=== PATIENT | male | born 1970 | race African-American/Black ===

== ENCOUNTER 2019-06-14 14:28 | Emergency (ER) | payer BC ==
[~2019-06-14] VITALS: Ht 180.3 cm; Wt 110.0 kg
[2019-06-14] MEDS ORDERED: ASPIRIN CHEWABLE 81 MG TABLET. PO ONE (15:15)
--- NOTE | 2019-06-14 15:25 | PHYS DOC ---
Past Medical History Past Medical History: Hypertension Past Surgical History: No Surgical History Smoking Status: Never Smoker Alcohol Use: Occasionally General Adult EDM: Chief Complaint: Palpitations HPI: HPI: Patient is a 49 year old male with history of hypertension who presents with complaint of heart racing. Patient complaining of intermittent episodes of palpitation since 2100 last night with right-sided chest tightness. Patient states the pain is 4/10 and gradually getting better since last night but episodes of hypotension is intermittently and last about 15 to 20 minutes without shortness of breath, dizziness, fever and chills, cough and congestion, history of the same problem. Review of Systems: Review of Systems: Constitutional: Denies fever or chills. [] Eyes: Denies change in visual acuity. [] HENT: Denies nasal congestion or sore throat. [] Respiratory: Denies cough or shortness of breath. [] Cardiovascular: Denies chest pain or edema. [] GI: Denies abdominal pain, nausea, vomiting, bloody stools or diarrhea. [] : Denies dysuria. [] Musculoskeletal: Denies back pain or joint pain. [] Integument: Denies rash. [] Neurologic: Denies headache, focal weakness or sensory changes. [] Endocrine: Denies polyuria or polydipsia. [] Lymphatic: Denies swollen glands. [] Psychiatric: Denies depression or anxiety. [] Heart Score: HEART Score for Chest Pain: HEART Score for Chest Pain Response (Comments) Value History Moderately Suspicious 1 ECG Normal 0 Age >45 - < 65 1 Risk Factors 1 or 2 Risk Factors 1 Troponin < Normal Limit 0 Total 3 Risk Factors: Risk Factors: DM, Current or recent (<one month) smoker, HTN, HLP, family history of CAD, obesity. Risk Scores: Score 0 - 3: 2.5% MACE over next 6 weeks - Discharge Home Score 4 - 6: 20.3% MACE over next 6 weeks - Admit for Clinical Observation Score 7 - 10: 72.7% MACE over next 6 weeks - Early Invasive Strategies Allergies: Allergies: Allergies Coded Allergies Type Severity Reaction Last Updated Verified No Known Drug Allergies 06/14/19 No Physical Exam: PE: Constitutional: Well developed, well nourished, no acute distress, non-toxic appearance. [] HENT: Normocephalic, atraumatic Eyes: PERRLA, EOMI, conjunctiva normal, no discharge. [] Neck: Normal range of motion, no tenderness, supple, no stridor. [] Cardiovascular:Heart rate regular rhythm, no murmur [] Lungs & Thorax: Bilateral breath sounds clear to auscultation, no chest wall tenderness. [] Abdomen: Bowel sounds normal, soft, no tenderness, no masses, no pulsatile masses. [] Skin: Warm, dry, no erythema, no rash. [] Back: No tenderness, no CVA tenderness. [] Extremities: No tenderness, no cyanosis, no clubbing, ROM intact, no edema. [] Neurologic: Alert and oriented X 3, normal motor function, normal sensory function, no focal deficits noted. [] Psychologic: Affect normal, judgement normal, mood normal. [] Current Patient Data: Vital Signs: Vital Signs Date Time Temp Pulse Resp B/P (MAP) Pulse Ox O2 Delivery O2 Flow Rate FiO2 06/14/19 14:40 98.5 81 16 167/72 (103) 99 Room Air 98.5 EKG: EKG: EKG interpreted by me. EKG at 1438 showed normal sinus rhythm at rate of 85, normal IN and QT intervals, no acute ST and T wave elevation. Radiology/Procedures: Radiology/Procedures: [facility] [address] [place] [address] IMAGING REPORT Signed PATIENT: NEYDA SETH ACCOUNT: [id number] : 1970 LOCATION: ER AGE: 49 SEX: M EXAM STATUS: REG ER ORD. PHYSICIAN: NICOLE CORONADO MD REASON: Chest pain and palpitation PROCEDURE: PORTABLE CHEST 1V One view chest HISTORY: Chest pain and palpitations COMPARISON: None available FINDINGS: The heart is mildly prominent in size may partially reflect portable technique. Pulmonary vasculature is mildly prominent. The lungs are slightly underexpanded. There is a focal density in the right lower lobe. No effusion or pneumothorax. IMPRESSION: Mild interstitial prominence could reflect nonspecific interstitial infiltrates, hypervolemia or edema. Focal density in the right lower lobe Electronically signed by: Jessica Schroeder MD (06/14/2019 3:42 PM) [id number] DICTATED and SIGNED BY: JESSICA SCHROEDER MD DATE: 06/14/19 1542 Course & Med Decision Making: Course & Med Decision Making Pertinent Labs and Imaging studies reviewed. (See chart for details) Evaluation of patient in ER showed 49-year-old male patient with heart score of 3 and intermittent episodes of palpitation and chest tightness in the right side of chest since last night. Patient had increase of physical activity recently. Patient had elevation of CK with unremarkable d-dimer, troponin, electrolytes and liver and kidney function. Chest x-ray was questionable for infiltrate or edema but patient did not have cough, fever, leukocytosis or leukopenia, concern for COVID 19. Patient was advised avoid of heavy exercise and increase fluid intake. I've spoken with the patient and/or caregivers. I've explained the patient's condition, diagnosis and treatment plan based on information available to me at this time. I've answered the patient's and/or caregivers questions and addressed any concerns. The patient and/or caregivers have a good understanding the patient's diagnosis, condition and treatment plan as can be expected at this point. Vital signs have been stabilized. The patient's condition is stable for discharge from the emergency department. The patient will pursue further outpatient evaluation with her primary care provider or other designated consulting physician as outlined in the discharge instructions. Patient and/or caregivers are agreeable to this plan of care and follow-up instructions have been explained in detail. The patient and/or caregivers have received these instructions in written format and expressed understanding of these discharge instructions. The patient and her caregivers are aware that if any significant change in condition or worsening of symptoms should prompt him to immediately return to this of the closest emergency departm ent. If an emergent department is not readily available I would encourage him to call 911. Desean Disclaimer: Desean Disclaimer: This electronic medical record was generated, in whole or in part, using a voice recognition dictation system. Departure Departure Impression: Primary Impression: Exertional rhabdomyolysis Disposition: HOME, SELF-CARE (At 1639) Condition: STABLE Referrals: NIRAV VELASCO MD (PCP) Patient Instructions: Rhabdomyolysis Additional Instructions: Drink plenty of liquids Follow-up with your primary care physician in 3-5 days Return to ER if not getting better Avoid of heavy exercise for a few days May take [id number] Tylenol as needed for pain Thank you for visiting [facility]. We appreciate you trusting us with your care. If any additional problems come up don't hesitate to return to visit us. Please follow up with your primary care provider so they can plan additional care if needed and know about the problem that you had. If symptoms worsen come back to the Emergency Department. Any concerning symptoms that start such as chest pain, shortness of air, weakness or numbness on one side of the body, running high fevers or any other concerning symptoms return to the ER. NICOLE CORONADO MD Jun 14, 2019 15:25
[2019-06-14 15:37] LABS: BASO % 1 % (0-3); EOS # 0.1 x10^3/uL (0.0-0.7); EOS % 2 % (0-3); HEMOGLOBIN 13.7 g/dL (13.0-17.5); LYMPH # 1.3 x10^3/uL (1.0-4.8); LYMPH % 24 % (24-48); MEAN CORPUSCULAR HEMOGLOBIN 24 pg (25-35); MEAN CORPUSCULAR HGB CONC 33 g/dL (31-37); MEAN CORPUSCULAR VOLUME 74 fL (79-100); MONO # 0.5 x10^3/uL (0.0-1.1); MONO % 9 % (0-9); NEUT # 3.6 x10^3/uL (1.8-7.7); NEUT % 65 % (31-73); PLATELET COUNT 262 x10^3/uL (140-400); RED BLOOD COUNT 5.65 x10^6/uL (4.30-5.70); RED CELL DISTRIBUTION WIDTH 14.5 % (11.5-14.5); WHITE BLOOD COUNT 5.5 x10^3/uL (4.0-11.0)
--- NOTE | 2019-06-14 15:45 | RAD ---
One view chest HISTORY: Chest pain and palpitations COMPARISON: None available FINDINGS: The heart is mildly prominent in size may partially reflect portable technique. Pulmonary vasculature is mildly prominent. The lungs are slightly underexpanded. There is a focal density in the right lower lobe. No effusion or pneumothorax. IMPRESSION: Mild interstitial prominence could reflect nonspecific interstitial infiltrates, hypervolemia or edema. Focal density in the right lower lobe Electronically signed by: Travis Read MD (06/14/2019 3:42 PM) [id number]
[2019-06-14 15:58] LABS: PROTHROMBIN TIME PATIENT 12.9 SEC (11.7-14.0)
--- NOTE | 2019-06-14 16:04 | EKG ---
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 Electronically Signed On 06-15-2019 9:22:59 CDT by Davon Mccarty
[2019-06-14 16:11] LABS: CALCIUM 9.1 mg/dL (8.5-10.1); CREATININE 1.3 mg/dL (0.7-1.3); GFR 70.7; POTASSIUM 3.7 mmol/L (3.5-5.1)
[2019-06-14 16:15] LABS: ALBUMIN 4.2 g/dL (3.4-5.0); ALBUMIN/GLOBULIN RATIO 1.1 (1.0-1.7); MAGNESIUM 1.9 mg/dL (1.8-2.4); TOTAL BILIRUBIN 0.6 mg/dL (0.2-1.0); TOTAL PROTEIN 7.9 g/dL (6.4-8.2)
[2019-06-14 16:21] LABS: D-DIMER < 0.27 ug/mlFEU (0.00-0.50)
[2019-06-14 16:40] VITALS: BP 169/93
== END 2019-06-14 18:17 | disposition home or self-care (01) ==
LOC: ER 14:28
DX: M62.82 Rhabdomyolysis (principal); R07.89 Other chest pain; R00.2 Palpitations; I10 Essential (primary) hypertension
CPT/HCPCS: 36415; 71045; 80053; 82550; 83690; 83735; 83880; 84443; 84484; 85025; 85379; 85610; 93005; 99285

== ENCOUNTER 2019-07-24 06:49 | Inpatient (IN) | payer BC ==
[~2019-07-24] VITALS: Ht 180.3 cm; Wt 105.4 kg
[2019-07-24] MEDS ORDERED: ASPIRIN CHEWABLE 81 MG TABLET. PO ONE (07:45)
[2019-07-24] MEDS ORDERED: NITROGLYCERIN SUBLINGUAL 0.4 MG BOTTLE OF 25. SL PRN (07:45)
--- NOTE | 2019-07-24 08:24 | RAD ---
INDICATION: Chest pain COMPARISON: June 14, 2019 FINDINGS: Single view of chest obtained. Cardiac silhouette is mildly prominent. Hypoexpanded exam with mild interstitial opacities. Nodular opacity right lower lung measuring up to 15 mm. IMPRESSION: * Hypoexpanded exam with mild interstitial opacities bilaterally. Could be secondary to interstitial infiltrate or mild edema. * Nodular opacity at the right lower lung. Some possible causes would include nodular atelectasis, infectious or inflammatory causes as well as lung neoplasm. Further workup option includes CT of the chest. Electronically signed by: Avery Jose MD (07/24/2019 8:21 AM) [id number]
[2019-07-24 08:32] LABS: BASO % 1 % (0-3); EOS # 0.1 x10^3/uL (0.0-0.7); EOS % 2 % (0-3); HEMATOCRIT 41.3 % (39.0-53.0); HEMOGLOBIN 13.3 g/dL (13.0-17.5); LYMPH # 1.7 x10^3/uL (1.0-4.8); LYMPH % 28 % (24-48); MEAN CORPUSCULAR HEMOGLOBIN 24 pg (25-35); MEAN CORPUSCULAR HGB CONC 32 g/dL (31-37); MEAN CORPUSCULAR VOLUME 75 fL (79-100); MONO # 0.7 x10^3/uL (0.0-1.1); MONO % 10 % (0-9); NEUT # 3.7 x10^3/uL (1.8-7.7); NEUT % 59 % (31-73); PLATELET COUNT 254 x10^3/uL (140-400); RED BLOOD COUNT 5.53 x10^6/uL (4.30-5.70); RED CELL DISTRIBUTION WIDTH 14.3 % (11.5-14.5); WHITE BLOOD COUNT 6.3 x10^3/uL (4.0-11.0)
[2019-07-24 08:42] LABS: CALCIUM 8.7 mg/dL (8.5-10.1); CREATININE 1.3 mg/dL (0.7-1.3); GFR 70.7; POTASSIUM 3.2 mmol/L (3.5-5.1)
[2019-07-24 08:48] LABS: ALBUMIN/GLOBULIN RATIO 1.2 (1.0-1.7); TOTAL BILIRUBIN 0.3 mg/dL (0.2-1.0); TOTAL PROTEIN 7.3 g/dL (6.4-8.2)
--- NOTE | 2019-07-24 10:32 | PHYS DOC ---
Past Medical History Past Medical History: Hypertension, Other Additional Past Medical Histor: blind right eye Past Surgical History: No Surgical History Additional Past Surgical Histo: right eye removal after work accident Smoking Status: Never Smoker Alcohol Use: Occasionally Adult General Chief Complaint Chief Complaint: Congestion HPI HPI Patient is a 49 year old -[place] male with history of hypertension, dyslipidemia and prediabetes who presents with precordial chest pain radiating to right lower chest. Pain lasted for 15 to 20 minutes and is episodic and is associated with dyspnea. Symptoms have been occurring sporadically over the past 4 weeks. Denies nausea, vomiting, abdominal pain, sweats. No leg pain or swelling. No other acute symptoms or planes. No medications or therapies taken prior to ED arrival. Patient is non-smoker. No family history of CAD. Although, patient's mother of cerebrovascular disease at age 49. [] Review of Systems Review of Systems View of symptoms as per HPI. All other review of symptoms are negative. All other systems were reviewed and found to be within normal limits, except as documented in this note. Current Medications Current Medications Current Medications Medications (Trade) Dose Ordered Sig/Dwayne Start Time Stop Time Status Last Admin Dose Admin Aspirin (Aspirin Chewable) 324 mg 1X ONCE 07/24/19 07:45 07/24/19 07:46 DC 07/24/19 08:30 324 MG Nitroglycerin (Nitrostat) 0.4 mg PRN Q5MIN PRN 07/24/19 07:45 07/24/19 08:34 0.4 MG Allergies Allergies Allergies Coded Allergies Type Severity Reaction Last Updated Verified No Known Drug Allergies 06/14/19 No Physical Exam Physical Exam Constitutional: Well developed, well nourished, no acute distress, non-toxic appearance. [] HENT: Normocephalic, atraumatic, bilateral external ears normal, oropharynx moist, no oral exudates, nose normal. [] Eyes: PERRLA, EOMI, conjunctiva normal, no discharge. [] Neck: Normal range of motion, no tenderness, supple, no stridor. [] Cardiovascular:Heart rate regular rhythm, no murmur [] Lungs & Thorax: Bilateral breath sounds clear to auscultation [] Abdomen: Bowel sounds normal, soft, no tenderness. [] Skin: Warm, dry, no erythema, no rash. [] Back: No tenderness, no CVA tenderness. [] Extremities: No tenderness, no cyanosis, no clubbing, ROM intact, no edema. [] Neurologic: Alert and oriented X 3, normal motor function, normal sensory funct ion, no focal deficits noted. [] Psychologic: Affect normal, judgement normal, mood normal. [] Current Patient Data Vital Signs Vital Signs Date Time Temp Pulse Resp B/P (MAP) Pulse Ox O2 Delivery O2 Flow Rate FiO2 07/24/19 10:07 53 20 171/88 (115) 100 07/24/19 09:16 Room Air 07/24/19 07:15 98.1 98.1 Lab Values Laboratory Tests Test 07/24/19 08:10 White Blood Count 6.3 x10^3/uL (4.0-11.0) Red Blood Count 5.53 x10^6/uL (4.30-5.70) Hemoglobin 13.3 g/dL (13.0-17.5) Hematocrit 41.3 % (39.0-53.0) Mean Corpuscular Volume 75 fL (79-100) L Mean Corpuscular Hemoglobin 24 pg (25-35) L Mean Corpuscular Hemoglobin Concent 32 g/dL (31-37) Red Cell Distribution Width 14.3 % (11.5-14.5) Platelet Count 254 x10^3/uL (140-400) Neutrophils (%) (Auto) 59 % (31-73) Lymphocytes (%) (Auto) 28 % (24-48) Monocytes (%) (Auto) 10 % (0-9) H Eosinophils (%) (Auto) 2 % (0-3) Basophils (%) (Auto) 1 % (0-3) Neutrophils # (Auto) 3.7 x10^3/uL (1.8-7.7) Lymphocytes # (Auto) 1.7 x10^3/uL (1.0-4.8) Monocytes # (Auto) 0.7 x10^3/uL (0.0-1.1) Eosinophils # (Auto) 0.1 x10^3/uL (0.0-0.7) Basophils # (Auto) 0.0 x10^3/uL (0.0-0.2) D-Dimer (Yolanda) < 0.27 ug/mlFEU Sodium Level 137 mmol/L (136-145) Potassium Level 3.2 mmol/L (3.5-5.1) L Chloride Level 101 mmol/L (98-107) Carbon Dioxide Level 32 mmol/L (21-32) Anion Gap 4 (6-14) L Blood Urea Nitrogen 16 mg/dL (8-26) Creatinine 1.3 mg/dL (0.7-1.3) Estimated GFR (Cockcroft-Gault) 70.7 BUN/Creatinine Ratio 12 (6-20) Glucose Level 101 mg/dL (70-99) H Calcium Level 8.7 mg/dL (8.5-10.1) Total Bilirubin 0.3 mg/dL (0.2-1.0) Aspartate Amino Transferase (AST) 23 U/L (15-37) Alanine Aminotransferase (ALT) 37 U/L (16-63) Alkaline Phosphatase 107 U/L (46-116) Troponin I Quantitative < 0.017 ng/mL (0.000-0.055) NX-Nxw-V-Type Natriuretic Peptide 69 pg/mL (0-124) Total Protein 7.3 g/dL (6.4-8.2) Albumin 4.0 g/dL (3.4-5.0) Albumin/Globulin Ratio 1.2 (1.0-1.7) Laboratory Tests 07/24/19 08:10 Laboratory Tests 07/24/19 08:10 EKG EKG [EKG: reviewed] Radiology/Procedures Radiology/Procedures [Chest x-ray: No acute disease] Course & Med Decision Making Course & Med Decision Making Pertinent Labs and Imaging studies reviewed. (See chart for details) [Atypical chest pain relieved with nitroglycerin given the patient with multiple cardiac risk factors. EKG negative. Symptoms fully resolved. Dr. Valentine in the ED for hospital admission.] Dragon Disclaimer Dragon Disclaimer This electronic medical record was generated, in whole or in part, using a voice recognition dictation system. Departure Departure Impression: Primary Impression: Chest pain Disposition: ADMITTED INPATIENT Condition: STABLE Referrals: NIRAV VELASCO MD (PCP) MICHAEL VENTURA DO July 24, 2019 10:32
--- NOTE | 2019-07-24 10:55 | PDOC1 ---
History and Physical Date of Admission Date of Admission DATE: 07/24/19 TIME: 10:50 Identification/Chief Complaint Chief Complaint seen in er with chest pressure, mixed symptoms and abnormal cxr 49 year old -Wallisian male with history of hypertension, dyslipidemia and prediabetes who presents with precordial chest pain radiating to right lower chest. Pain lasted for 15 to 20 minutes and is episodic and is associated with dyspnea. Symptoms have been occurring sporadically over the past 4 weeks. Denies nausea, vomiting, abdominal pain, sweats. No leg pain or swelling. No medications or therapies taken prior to ED arrival. Patient is non-smoker. No family history of CAD. patient's mother of cerebrovascular disease at age 49. 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 [facility] 2018 Past Surgical History: No Surgical History Additional Past Surgical Histo: right eye removal after work accident Smoking Status: Never Smoker Alcohol Use: Occasionally FHX HTN Cardiovascular: HTN ENT: Other (right eye loss 2016) Endocrine: No pertinent hx Dermatology: No pertinent hx Family History Family History: Hypertension Social History Smoke: No ALCOHOL: occassional Drugs: None Current Problem List Problem List Problems Medical Problems: (1) Chest pain Status: Acute Current Medications Current Medications Current Medications Aspirin (Aspirin Chewable) 324 mg 1X ONCE PO Last administered on 07/24/19at 08:30; Start 07/24/19 at 07:45; Stop 07/24/19 at 07:46; Status DC Nitroglycerin (Nitrostat) 0.4 mg PRN Q5MIN PRN SL CHEST PAIN Last administered on 07/24/19at 08:34; Start 07/24/19 at 07:45 Allergies Allergies: Coded Allergies: No Known Drug Allergies (Unverified , 06/14/19) ROS Review of System Review of Systems Review of Systems as per HPI. All other review of symptoms are negative. 14 pt systems were reviewed and found to be within normal limits, except as documented General: No: Chills, Night Sweats, Fatigue, Malaise, Appetite, Other Eyes: Yes Loss of vision HEENT: No: Heacaches, Visual Changes, Hearing change, Nasal congestion, Nasal discharge, Oral lesions, Sinus pain, Sore Throat, Epistaxis, Sneezing, Snoring, Tinnitus, Vertigo, Vocal changes, Other ALLERGY AND IMMUNOLOGY: No: Hives, Insect Bite Sensitivity, Itchy/Watery Eyes, Nasal Congestion, Post Nasal Drip, Seasonal Allergies, Other Hematological and Lymphatic: No: Bleeding Problems, Blood Clots, Blood Transfusions, Brusing, Night Sweats, Pallor, Swollen Lymph Nodes, Other Respiratory: No: Cough, Hemoptysis, Orthopnea, Pleuritic Pain, Shortness of breath, SOB with excertion, Sputum Changes, Stridor, Tachypnea, Wheezing, Other Cardiovascular: yes Chest Pain; No Palpitations, No Orthopnea, No Paroxysmal Noc. Dyspnea, No Edema, No Lt Headedness, No Other Gastrointestinal: No Nausea, No Vomiting, No Abdominal Pain, No Diarrhea, No Constipation, No Melena, No Hematochezia, No Other Genitourinary: No Dysuria, No Frequency, No Incontinence, No Hematuria, No Retention, No Discharge, No Urgency, No Pain, No Flank Pain, No Other, No , No , No , No , No , No , No Musculoskeletal: No Gait Disturbance, No Joint Pain, No Joint Stiffness, No Joint Swelling, No Muscle Pain, No Muscular Weakness, No Pain In:, No Swelling In:, No Other Neurological: No Behavorial Changes, No Bowel/Bladder ControlChng, No Confusion, No Dizziness, No Gait Disturbance, No Headaches, No Impaired Coord/balance, No Memory Loss, No Numbness/Tingling, No Seizures, No Speech P roblems, No Tremors, No Visual Changes, No Weakness, No Other Skin: No Dry Skin, No Eczema, No Hair Changes, No Lumps, No Mole Changes, No Mottling, No Nail Changes, No Pruritus, No Rash, No Skin Lesion Changes, No Other, No Acne Physical Exam Physical Exam Physical Exam Physical Exam Constitutional: Well developed, well nourished, no acute distress, non-toxic appearance. [] HENT: Normocephalic, atraumatic, bilateral external ears normal, oropharynx moist, no oral exudates, nose normal. right eye prosthetic[] Eyes: PERRLA, EOMI, conjunctiva normal, no discharge. [] Neck: Normal range of motion, no tenderness, supple, no stridor. [] Cardiovascular:Heart rate regular rhythm, no murmur [] Lungs & Thorax: Bilateral breath sounds clear to auscultation [] Abdomen: Bowel sounds normal, soft, no tenderness. [] Skin: Warm, dry, no erythema, no rash. [] Back: No tenderness, no CVA tenderness. [] Extremities: No tenderness, no cyanosis, no clubbing, ROM intact, no edema. [] Neurologic: Alert and oriented X 3, normal motor function, normal sensory function, no focal deficits noted. [] Psychologic: Affect normal, judgment normal, mood normal. [] General: Alert, Oriented X3, Cooperative, No acute distress HEENT: Mucous membr. moist/pink Lungs: Clear to auscultation, Normal air movement Heart: S1S2, RRR, no thrills, no gallops, no murmurs Abdomen: Normal bowel sounds, Soft Rectal Exam: not examined Extremities: No cyanosis, No edema Neuro: Normal speech, Cranial nerves 3-12 NL Psych/Mental Status: Mental status NL, Mood NL Vitals Vitals Vital Signs Date Time Temp Pulse Resp B/P (MAP) Pulse Ox O2 Delivery O2 Flow Rate FiO2 07/24/19 10:48 63 20 154/84 (107) 98 Room Air 07/24/19 07:15 98.1 98.1 Labs Labs Laboratory Tests Test 07/24/19 08:10 White Blood Count 6.3 x10^3/uL (4.0-11.0) Red Blood Count 5.53 x10^6/uL (4.30-5.70) Hemoglobin 13.3 g/dL (13.0-17.5) Hematocrit 41.3 % (39.0-53.0) Mean Corpuscular Volume 75 fL (79-100) Mean Corpuscular Hemoglobin 24 pg (25-35) Mean Corpuscular Hemoglobin Concent 32 g/dL (31-37) Red Cell Distribution Width 14.3 % (11.5-14.5) Platelet Count 254 x10^3/uL (140-400) Neutrophils (%) (Auto) 59 % (31-73) Lymphocytes (%) (Auto) 28 % (24-48) Monocytes (%) (Auto) 10 % (0-9) Eosinophils (%) (Auto) 2 % (0-3) Basophils (%) (Auto) 1 % (0-3) Neutrophils # (Auto) 3.7 x10^3/uL (1.8-7.7) Lymphocytes # (Auto) 1.7 x10^3/uL (1.0-4.8) Monocytes # (Auto) 0.7 x10^3/uL (0.0-1.1) Eosinophils # (Auto) 0.1 x10^3/uL (0.0-0.7) Basophils # (Auto) 0.0 x10^3/uL (0.0-0.2) D-Dimer (Yolanda) < 0.27 ug/mlFEU Sodium Level 137 mmol/L (136-145) Potassium Level 3.2 mmol/L (3.5-5.1) Chloride Level 101 mmol/L (98-107) Carbon Dioxide Level 32 mmol/L (21-32) Anion Gap 4 (6-14) Blood Urea Nitrogen 16 mg/dL (8-26) Creatinine 1.3 mg/dL (0.7-1.3) Estimated GFR (Cockcroft-Gault) 70.7 BUN/Creatinine Ratio 12 (6-20) Glucose Level 101 mg/dL (70-99) Calcium Level 8.7 mg/dL (8.5-10.1) Total Bilirubin 0.3 mg/dL (0.2-1.0) Aspartate Amino Transf (AST/SGOT) 23 U/L (15-37) Alanine Aminotransferase (ALT/SGPT) 37 U/L (16-63) Alkaline Phosphatase 107 U/L (46-116) Troponin I Quantitative < 0.017 ng/mL (0.000-0.055) GO-Khu-U-Type Natriuretic Peptide 69 pg/mL (0-124) Total Protein 7.3 g/dL (6.4-8.2) Albumin 4.0 g/dL (3.4-5.0) Albumin/Globulin Ratio 1.2 (1.0-1.7) Laboratory Tests Test 07/24/19 08:10 White Blood Count 6.3 x10^3/uL (4.0-11.0) Red Blood Count 5.53 x10^6/uL (4.30-5.70) Hemoglobin 13.3 g/dL (13.0-17.5) Hematocrit 41.3 % (39.0-53.0) Mean Corpuscular Volume 75 fL (79-100) Mean Corpuscular Hemoglobin 24 pg (25-35) Mean Corpuscular Hemoglobin Concent 32 g/dL (31-37) Red Cell Distribution Width 14.3 % (11.5-14.5) Platelet Count 254 x10^3/uL (140-400) Neutrophils (%) (Auto) 59 % (31-73) Lymphocytes (%) (Auto) 28 % (24-48) Monocytes (%) (Auto) 10 % (0-9) Eosinophils (%) (Auto) 2 % (0-3) Basophils (%) (Auto) 1 % (0-3) Neutrophils # (Auto) 3.7 x10^3/uL (1.8-7.7) Lymphocytes # (Auto) 1.7 x10^3/uL (1.0-4.8) Monocytes # (Auto) 0.7 x10^3/uL (0.0-1.1) Eosinophils # (Auto) 0.1 x10^3/uL (0.0-0.7) Basophils # (Auto) 0.0 x10^3/uL (0.0-0.2) D-Dimer (Yolanda) < 0.27 ug/mlFEU Sodium Level 137 mmol/L (136-145) Potassium Level 3.2 mmol/L (3.5-5.1) Chloride Level 101 mmol/L (98-107) Carbon Dioxide Level 32 mmol/L (21-32) Anion Gap 4 (6-14) Blood Urea Nitrogen 16 mg/dL (8-26) Creatinine 1.3 mg/dL (0.7-1.3) Estimated GFR (Cockcroft-Gault) 70.7 BUN/Creatinine Ratio 12 (6-20) Glucose Level 101 mg/dL (70-99) Calcium Level 8.7 mg/dL (8.5-10.1) Total Bilirubin 0.3 mg/dL (0.2-1.0) Aspartate Amino Transf (AST/SGOT) 23 U/L (15-37) Alanine Aminotransferase (ALT/SGPT) 37 U/L (16-63) Alkaline Phosphatase 107 U/L (46-116) Troponin I Quantitative < 0.017 ng/mL (0.000-0.055) ZL-Cvd-I-Type Natriuretic Peptide 69 pg/mL (0-124) Total Protein 7.3 g/dL (6.4-8.2) Albumin 4.0 g/dL (3.4-5.0) Albumin/Globulin Ratio 1.2 (1.0-1.7) Images Images Single view of chest obtained. Cardiac silhouette is mildly prominent. Hypoexpanded exam with mild interstitial opacities. Nodular opacity right lower lung measuring up to 15 mm. IMPRESSION: * Hypoexpanded exam with mild interstitial opacities bilaterally. Could be secondary to interstitial infiltrate or mild edema. * Nodular opacity at the right lower lung. Some possible causes would include nodular atelectasis, infectious or inflammatory causes as well as lung neoplasm. Further workup option includes CT of the chest. Electronically signed by: Leidy Jose MD (07/24/2019 8:21 AM) [id number] DICTATED and SIGNED BY: LEIDY JOSE MD DATE: 07/24/1921 VTE Prophylaxis Ordered VTE Prophylaxis Devices: Yes VTE Pharmacological Prophylaxi: Yes Assessment/Plan Assessment/Plan IMPRESSION 1 atypical chest pain 2. Hypoexpanded exam with mild interstitial opacities bilaterally. Could be secondary to interstitial infiltrate or mild edema.Nodular opacity at the right lower lung. Some possible causes would include nodular atelectasis, infectious or inflammatory causes as well as lung neoplasm. consider CT of the chest. 3. hypertension 4. hypokalemia , on replacement 5. possible GERD 6/. Possible obstructive sleep apnea plan admit consult cardiology consult pulm medicine serial troponin i covid-[address] CHEST exclude mass dvt prophylaxis lipid panel protonix consider out pt sleep study D/W ER ELLI RIVERA MD July 24, 2019 10:55
[2019-07-24] MEDS ORDERED: POTASSIUM CHLORIDE 20 MEQ TABLET.ER. PO ONE (11:00)
[2019-07-24] MEDS ORDERED: ONDANSETRON PF 4 MG/2 ML VIAL. IV PRN (11:15)
[2019-07-24] MEDS ORDERED: LORazepam 0.5 MG TABLET PO PRN (11:15)
[2019-07-24] MEDS ORDERED: MAG HYDROX/ALUMINUM HYD/SIMETH 30 ML ORAL.SUSP PO PRN (11:15)
[2019-07-24] MEDS ORDERED: hydrALAZINE 20 MG/ML VIAL. IVP PRN (11:15)
[2019-07-24] MEDS ORDERED: guaiFENesin ORAL 200 MG/10 ML LIQUID. PO PRN (11:15)
[2019-07-24] MEDS ORDERED: DOCUSATE SODIUM 100 MG CAPSULE. PO PRN (11:15)
[2019-07-24] MEDS ORDERED: ALBUTEROL SULFATE 2.5 MG/3 ML NEBU. NEB PRN (11:15)
[2019-07-24] MEDS ORDERED: SODIUM PHOSPHATES 19/7GM 133 ML ENEMA. PR PRN (11:15)
[2019-07-24] MEDS ORDERED: 0.9 % SODIUM CHLORIDE 10 ML DISP.SYRIN. IV PRN (11:15)
[2019-07-24] MEDS ORDERED: ACETAMINOPHEN 325 MG TABLET. PO PRN (11:15)
--- NOTE | 2019-07-24 11:24 | PDOC2 ---
CARDIAC CONSULT DATE OF CONSULT Date of Consult DATE: 07/24/19 TIME: 11:20 REASON FOR CONSULT Reason for Consult: Chest pain REFERRING PHYSICIAN Referring Physician: Dr. Valentine SOURCE Source: Chart review, Patient HISTORY OF PRESENT ILLNESS HISTORY OF PRESENT ILLNESS This is a 49 yo male who presented secondary to chest pain. PAST MEDICAL HISTORY Cardiovascular: HTN, Hyperlipidemia CURRENT MEDICATIONS CURRENT MEDICATIONS Current Medications Medications (Trade) Dose Ordered Sig/Dwayne Route PRN Reason Start Time Stop Time Status Last Admin Dose Admin Aspirin (Aspirin Chewable) 324 mg 1X ONCE PO 07/24/19 07:45 07/24/19 07:46 DC 07/24/19 08:30 Nitroglycerin (Nitrostat) 0.4 mg PRN Q5MIN PRN SL CHEST PAIN 07/24/19 07:45 07/24/19 08:34 Potassium Chloride (Klor-Con) 40 meq 1X ONCE PO 07/24/19 11:00 07/24/19 11:01 DC 07/24/19 11:06 ALLERGIES ALLERGIES: Coded Allergies: No Known Drug Allergies (Unverified , 06/14/19) VITALS/I&O VITALS/I&O: Vital Signs Date Time Temp Pulse Resp B/P (MAP) Pulse Ox O2 Delivery O2 Flow Rate FiO2 07/24/19 10:48 63 20 154/84 (107) 98 Room Air 07/24/19 07:15 98.1 98.1 LABS Lab: Laboratory Tests Test 07/24/19 08:10 White Blood Count 6.3 x10^3/uL (4.0-11.0) Red Blood Count 5.53 x10^6/uL (4.30-5.70) Hemoglobin 13.3 g/dL (13.0-17.5) Hematocrit 41.3 % (39.0-53.0) Mean Corpuscular Volume 75 fL (79-100) L Mean Corpuscular Hemoglobin 24 pg (25-35) L Mean Corpuscular Hemoglobin Concent 32 g/dL (31-37) Red Cell Distribution Width 14.3 % (11.5-14.5) Platelet Count 254 x10^3/uL (140-400) Neutrophils (%) (Auto) 59 % (31-73) Lymphocytes (%) (Auto) 28 % (24-48) Monocytes (%) (Auto) 10 % (0-9) H Eosinophils (%) (Auto) 2 % (0-3) Basophils (%) (Auto) 1 % (0-3) Neutrophils # (Auto) 3.7 x10^3/uL (1.8-7.7) Lymphocytes # (Auto) 1.7 x10^3/uL (1.0-4.8) Monocytes # (Auto) 0.7 x10^3/uL (0.0-1.1) Eosinophils # (Auto) 0.1 x10^3/uL (0.0-0.7) Basophils # (Auto) 0.0 x10^3/uL (0.0-0.2) D-Dimer (Yolanda) < 0.27 ug/mlFEU Sodium Level 137 mmol/L (136-145) Potassium Level 3.2 mmol/L (3.5-5.1) L Chloride Level 101 mmol/L (98-107) Carbon Dioxide Level 32 mmol/L (21-32) Anion Gap 4 (6-14) L Blood Urea Nitrogen 16 mg/dL (8-26) Creatinine 1.3 mg/dL (0.7-1.3) Estimated GFR (Cockcroft-Gault) 70.7 BUN/Creatinine Ratio 12 (6-20) Glucose Level 101 mg/dL (70-99) H Calcium Level 8.7 mg/dL (8.5-10.1) Total Bilirubin 0.3 mg/dL (0.2-1.0) Aspartate Amino Transferase (AST) 23 U/L (15-37) Alanine Aminotransferase (ALT) 37 U/L (16-63) Alkaline Phosphatase 107 U/L (46-116) Troponin I Quantitative < 0.017 ng/mL (0.000-0.055) NP-Ghz-K-Type Natriuretic Peptide 69 pg/mL (0-124) Total Protein 7.3 g/dL (6.4-8.2) Albumin 4.0 g/dL (3.4-5.0) Albumin/Globulin Ratio 1.2 (1.0-1.7) Laboratory Tests 07/24/19 08:10 Laboratory Tests 07/24/19 08:10 ASSESSMENT/PLAN ASSESSMENT/PLAN Chest pain, atypical Accelerated hypertension Hyperlipidemia Hypokalemia Recommendations ASA Trend troponin Lipids, TSH, Mg level Echo to assess LV systolic function Consider outpatient ischemic evaluation PRECIOUS COLE APRN July 24, 2019 11:24
[2019-07-24 11:45] VITALS: BP 193/98
[2019-07-24] MEDS ORDERED: amLODIPine BESYLATE 5 MG TABLET PO SCH (12:00)
[2019-07-24 12:02] LABS: CHOLESTEROL/HDL RATIO 5.8
--- NOTE | 2019-07-24 12:27 | CONS ---
DATE OF CONSULTATION: 07/24/2019 REASON FOR CONSULTATION: Chest pain. CONSULTING PHYSICIAN: Homero Valentine MD HISTORY OF PRESENT ILLNESS: The patient is a pleasant 49-year-old man who reports over the last few days, he has had some difficulty with staying asleep. He has woken up with some coughing and some shortness of breath and some burning discomfort in his chest. He denies any associated nausea, vomiting, diarrhea, fevers or chills. He has not had any sick contacts. With specific evaluation of his symptoms with activity, he denies any exertional angina, dyspnea, orthopnea or PND. He does not have any syncope or palpitations. He is able to do things such as mowing his yard without any problems. PAST MEDICAL HISTORY: Hypertension. SOCIAL HISTORY: The patient is . Denies any alcohol, tobacco or illicit drug use. He is currently on workman's compensation due to a work injury to his eye. FAMILY HISTORY: Notable for coronary artery disease, hypertension and vascular disease. REVIEW OF SYSTEMS: Negative for 10 out of 14 systems reviewed, unless otherwise mentioned above in HPI. PHYSICAL EXAMINATION: VITAL SIGNS: 187/94, afebrile, 71, 16, 99% on room air. GENERAL: He is alert and oriented, no acute distress. HEAD AND NECK: Unremarkable. CARDIAC: Regular rate and rhythm without any murmurs, rubs or gallops. LUNGS: Clear to auscultation bilaterally. ABDOMEN: Soft, nontender, nondistended. EXTREMITIES: No clubbing, cyanosis or edema. NEUROLOGIC: No focal deficits. MUSCULOSKELETAL: No trauma. DIAGNOSTIC STUDIES: Creatinine within normal limits. Troponin negative x 1. LDL 169. Chest x-ray is notable for a mild interstitial opacities bilaterally. EKG is unremarkable. IMPRESSION: 1. Nocturnal dyspnea: Differential diagnosis includes most likely gastroesophageal reflux disease causing some aspiration as a source of his chest discomfort. 2. Hypertension, stage 2, currently uncontrolled, although the patient believes this is because he has not had his morning medications. RECOMMENDATIONS: Continue serial enzymes, restart home medications and we will obtain an echocardiogram. If the serial enzymes are negative and his echocardiogram looks unremarkable, he can then be discharged with close outpatient monitoring of his blood pressure and we will set him up for an outpatient stress test. This was discussed with the patient and all his questions were answered to his satisfaction. SAIDA GARCIA MD DR: NESTOR/marycarmen JOB#: [id number] / [id number]
--- NOTE | 2019-07-24 12:36 | EKG ---
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
--- NOTE | 2019-07-24 14:22 | RAD ---
CT CHEST WO CONTRAST INDICATION: Pulmonary nodule. COMPARISON STUDY: Radiograph 07/24/2019. TECHNIQUE: Unenhanced axial images were obtained through the lungs and upper abdomen. Coronal and sagittal multiplanar reconstructions were also obtained. PQRS compliance statement: One or more of the following individualized dose reduction techniques were utilized for this examination: 1. Automated exposure control 2. Adjustment of the mA and/or kV according to patient size 3. Use of iterative reconstruction technique FINDINGS: Lungs and Airways: Cluster of calcified and noncalcified nodules in the right lower lobe, with dominant calcified 1.6 cm nodule. Normal central airways. Pleura: The pleural spaces are normal. Heart and Mediastinum: The visualized thyroid gland is normal in size and attenuation. No axillary or supraclavicular lymphadenopathy. No mediastinal, hilar or retrocrural lymphadenopathy. Calcified mediastinal and right hilar lymph nodes consistent with remote granulomatous disease. Normal cardiac size. No pericardial effusion. Coronary artery atherosclerotic disease. The great vessels of the thorax are normal. Abdomen: Calcified hepatic and splenic granulomas. Bones and Soft Tissues: Degenerative changes of the spine. IMPRESSION: 1. Cluster of calcified and noncalcified nodules in the right lower lobe, with a dominant 1.6 cm calcified nodule. Nodule distribution and calcification pattern are consistent with remote granulomatous disease. The larger nodule corresponds to the abnormality noted on the prior chest radiograph. 2. Coronary artery atherosclerotic disease. Electronically signed by: Gael Whiting MD (07/24/2019 2:19 PM) [id number]
--- NOTE | 2019-07-24 14:35 | CARD ---
MR#: [id number] Date of Study: 07/24/2019 Ordering Physician: PRECIOUS COLE, Referring Physician: PRECIOUS COLE, Tech: Michelle Batista BEATRIS APPROVED REPORT EXAM: Two-dimensional and M-mode echocardiogram with Doppler and color Doppler. Other Information Quality : Good INDICATION Chest Pain 2D DIMENSIONS RVDd3.5 (2.9-3.5cm)Left Atrium(2D)4.5 (1.6-4.0cm) IVSd1.5 (0.7-1.1cm)Aortic Root(2D)3.3 (2.0-3.7cm) LVDd4.3 (3.9-5.9cm)LVOT Diameter2.1 (1.8-2.4cm) PWd1.5 (0.7-1.1cm)LVDs2.6 (2.5-4.0cm) FS (%) 40.1 %SV59.1 ml Aortic Valve AoV Peak Anil.151.9cm/sAoV VTI30.6cm AO Peak GR.9.2mmHgLVOT Peak Anil.137.9cm/s AO Mean GR.4mmHgAVA (VMAX)3.23cm2 SARAH (VTI)3.83yv8HR P 1/2 [id number] Mitral Valve MV E Mwdxajdu61.7cm/sMV DECEL [id number] MV A Xirwmmyz83.2cm/sE/A Ratio1.3 Pulmonary Vein S1 Ecxybker31.8cm/sD2 Nkwqyqrd65.7cm/s LEFT VENTRICLE The left ventricle is normal size. There is mild concentric left ventricular hypertrophy. The left ve ntricular systolic function is normal and the ejection fraction is within normal range. The Ejection Fraction is 60-65%. There is normal LV segmental wall motion. Transmitral Doppler flow pattern is Gra de I-abnormal relaxation pattern. RIGHT VENTRICLE The right ventricle is normal size. The right ventricular systolic function is normal. ATRIA The left atrium is mildly dilated. The right atrium size is normal. The interatrial septum is intact with no evidence for an atrial septal defect or patent foramen ovale as noted on 2-D or Doppler imagi ng. AORTIC VALVE The aortic valve is mildly thickened but opens well. Doppler and Color Flow revealed mild eccentric a ortic regurgitation. There is no significant aortic valvular stenosis. MITRAL VALVE The mitral valve is normal in structure and function. There is no evidence of mitral valve prolapse. There is no mitral valve stenosis. Doppler and Color-flow revealed trace mitral regurgitation. TRICUSPID VALVE The tricuspid valve is normal in structure and function. Doppler and Color Flow revealed no tricuspid valve regurgitation noted. There is no tricuspid valve stenosis. PULMONIC VALVE The pulmonary valve is normal in structure and function. Doppler and Color Flow revealed mild pulmoni c valvular regurgitation. There is no pulmonic valvular stenosis. GREAT VESSELS The aortic root is normal in size. The ascending aorta is mildly dilated at 3.7 cm. The IVC is normal in size and collapses >50% with inspiration. PERICARDIAL EFFUSION There is no evidence of significant pericardial effusion. Critical Notification Critical Value: No <Conclusion> The left ventricle is normal size. The left ventricular systolic function is normal and the ejection fraction is within normal range. The Ejection Fraction is 60-65%. There is mild concentric left ventricular hypertrophy. Doppler and Color Flow revealed mild eccentric aortic regurgitation. There is no significant aortic valvular stenosis. Doppler and Color-flow revealed trace mitral regurgitation. Doppler and Color Flow revealed no tricuspid valve regurgitation noted. The ascending aorta is mildly dilated at 3.7 cm. Signed by : Davon Mccarty MD Electronically Approved : 07/24/2019 14:34:38
--- NOTE | 2019-07-24 15:34 | CONS ---
DATE OF CONSULTATION: 07/24/2019 ATTENDING PHYSICIAN: Homero Valentine MD REASON FOR CONSULTATION: The patient seen in pulmonary consultation at the request of Dr. Valentine for abnormal CT chest. HISTORY OF PRESENT ILLNESS: The patient came in because of increasing shortness of air for the last 2-4 weeks, mostly at nighttime. He wakes up in the middle of night, gasping for air. His has noticed some apnea spells. There is also excessive daytime sleepiness. He awakens and refreshed from sleeping. He does snore. He presented, underwent CT chest without contrast, which showed a cluster calcified and noncalcified nodule in the right lower lobe. There was a 1.6 calcified nodule. There was a coronary artery atherosclerotic disease. No effusions. I was asked to see him in consultation. The patient denies fever, chills, nausea, vomiting, diarrhea. PAST MEDICAL HISTORY: Hypertension. SOCIAL HISTORY: He is . He is currently on workman's compensation. He had an injury to his right eye and lost his vision to the right eye. He never smoked. FAMILY HISTORY: No family history of lung disorders. There was a history of coronary artery disease, hypertension. REVIEW OF SYSTEMS: As indicated above, otherwise, a 10-point system was reviewed and negative. PHYSICAL EXAMINATION: VITAL SIGNS: Stable. O2 saturation was greater than 92%. HEENT: Eyes, the sclerae were nonicteric. NECK: Jugular venous distention was not elevated. No lymphadenopathy. CHEST: Full expansion. LUNGS: Adequate flow with no wheezes. CARDIOVASCULAR: Regular rate and rhythm with S1, S2, no S3. ABDOMEN: Soft, nontender, nondistended. EXTREMITIES: No clubbing, cyanosis or edema. LABORATORY DATA: Reviewed. White count was normal. Electrolytes were noted. BUN and creatinine were noted. D-dimer was less than 0.27. CT chest reviewed. There is evidence of calcified and noncalcified nodules in the right lower lobe with a dominant 1.6 calcified nodule. IMPRESSION: 1. Abnormal CT revealing calcified and noncalcified nodules, suspect related to granulomatous disease in a patient who has never smoked. Likelihood of this being malignancy is very low. 2. Clinical presentation compatible with obstructive sleep apnea. 3. Suspect secondary pulmonary hypertension. 4. Systemic hypertension. PLAN: 1. Recommend outpatient polysomnogram. 2. Recommend repeating CT chest in 6 to 12 months. 3. We will schedule outpatient polysomnogram. Have the patient follow up in my office. 4. I do appreciate the privilege in sharing in the patient's care. MONA MUNIZ MD DR: CLIVE/marycarmen JOB#: [id number] / [id number]
[2019-07-24 15:46] VITALS: BP 162/87
[2019-07-24] MEDS: ASPIRIN ENTERIC COATED 81 MG TABLET.DR. PO SCH (15:54)
[2019-07-24] MEDS: ENOXAPARIN 40 MG/0.4 ML SYRINGE. SQ SCH (15:59)
[2019-07-24 19:50] VITALS: BP 167/85
[2019-07-24] MEDS: ATORVASTATIN CALCIUM 40 MG TABLET. PO SCH (21:07)
--- NOTE | 2019-07-24 22:15 | NUR ---
Received phone call from lab that pt needed to be swabbed for Covid-19, order written at 11am. Called to attempt to clarify the order with continuous mining machine lode miner Physician however informed unable to clarify may need to clarify in am. Spoke to Wireless Construction Manager and informed to call Dr. Melissa. Called and at this time Physician states do not do anything at this time. Will hold order at this time. Pt currently asymptomatic and watching TV.
[2019-07-24 22:16] VITALS: BP 169/93
[2019-07-24] MEDS: LISINOPRIL 5 MG TABLET. PO SCH (22:23)
[2019-07-24] MEDS: amLODIPine BESYLATE 5 MG TABLET PO SCH (22:24)
[2019-07-25] VITALS (7 sets, daily range): BP systolic 156–182; BP diastolic 87–107
--- NOTE | 2019-07-25 05:59 | NUR ---
Pt with complaints of nasal congestion during the noc. Pt states more on the right where he had his injury. Pt had requested breathing tx and received tx however states he wasnt feeling better. Pt informed of breathing tx usually helps with shortness of air involving the lungs. Pt given prn nasal cannula to help with discomfort and given ativan to help pt to relax. Pt informed of possible needing something to help with nasal congestion or sinuses. Will inform day nurse when Physician days rounding today. No further complaints. Pt able to get rest after giving ativan. No further complaints at this time.
[2019-07-25 06:51] LABS: CALCIUM 8.7 mg/dL (8.5-10.1); CREATININE 1.2 mg/dL (0.7-1.3); GFR 77.5; POTASSIUM 3.4 mmol/L (3.5-5.1)
--- NOTE | 2019-07-25 08:24 | PDOC ---
PULMONARY PROGRESS NOTES Vitals Vital Signs Date Time Temp Pulse Resp B/P (MAP) Pulse Ox O2 Delivery O2 Flow Rate FiO2 07/25/19 07:51 98.3 76 20 182/107 (132) 100 Nasal Cannula 2.0 98.3 Labs Laboratory Tests Test 07/24/19 08:10 07/24/19 12:30 07/25/19 05:20 White Blood Count 6.3 x10^3/uL (4.0-11.0) Red Blood Count 5.53 x10^6/uL (4.30-5.70) Hemoglobin 13.3 g/dL (13.0-17.5) Hematocrit 41.3 % (39.0-53.0) Mean Corpuscular Volume 75 fL (79-100) Mean Corpuscular Hemoglobin 24 pg (25-35) Mean Corpuscular Hemoglobin Concent 32 g/dL (31-37) Red Cell Distribution Width 14.3 % (11.5-14.5) Platelet Count 254 x10^3/uL (140-400) Neutrophils (%) (Auto) 59 % (31-73) Lymphocytes (%) (Auto) 28 % (24-48) Monocytes (%) (Auto) 10 % (0-9) Eosinophils (%) (Auto) 2 % (0-3) Basophils (%) (Auto) 1 % (0-3) Neutrophils # (Auto) 3.7 x10^3/uL (1.8-7.7) Lymphocytes # (Auto) 1.7 x10^3/uL (1.0-4.8) Monocytes # (Auto) 0.7 x10^3/uL (0.0-1.1) Eosinophils # (Auto) 0.1 x10^3/uL (0.0-0.7) Basophils # (Auto) 0.0 x10^3/uL (0.0-0.2) D-Dimer (Yolanda) < 0.27 ug/mlFEU Sodium Level 137 mmol/L (136-145) 139 mmol/L (136-145) Potassium Level 3.2 mmol/L (3.5-5.1) 3.4 mmol/L (3.5-5.1) Chloride Level 101 mmol/L (98-107) 101 mmol/L (98-107) Carbon Dioxide Level 32 mmol/L (21-32) 27 mmol/L (21-32) Anion Gap 4 (6-14) 11 (6-14) Blood Urea Nitrogen 16 mg/dL (8-26) 12 mg/dL (8-26) Creatinine 1.3 mg/dL (0.7-1.3) 1.2 mg/dL (0.7-1.3) Estimated GFR (Cockcroft-Gault) 70.7 77.5 BUN/Creatinine Ratio 12 (6-20) Glucose Level 101 mg/dL (70-99) 95 mg/dL (70-99) Calcium Level 8.7 mg/dL (8.5-10.1) 8.7 mg/dL (8.5-10.1) Total Bilirubin 0.3 mg/dL (0.2-1.0) Aspartate Amino Transf (AST/SGOT) 23 U/L (15-37) Alanine Aminotransferase (ALT/SGPT) 37 U/L (16-63) Alkaline Phosphatase 107 U/L (46-116) Troponin I Quantitative < 0.017 ng/mL (0.000-0.055) HQ-Qnu-[id number]-Type Natriuretic Peptide 69 pg/mL (0-124) Total Protein 7.3 g/dL (6.4-8.2) Albumin 4.0 g/dL (3.4-5.0) Albumin/Globulin Ratio 1.2 (1.0-1.7) Triglycerides Level 49 mg/dL (0-150) Cholesterol Level 216 mg/dL (0-200) LDL Cholesterol, Calculated 169 mg/dL (0-100) VLDL Cholesterol, Calculated 10 mg/dL (0-40) Non-HDL Cholesterol Calculated 179 mg/dL (0-129) HDL Cholesterol 37 mg/dL (40-60) Cholesterol/HDL Ratio 5.8 Magnesium Level 2.1 mg/dL (1.8-2.4) Thyroid Stimulating Hormone (TSH) 3.364 uIU/mL (0.358-3.74) Laboratory Tests Test 07/24/19 12:30 07/25/19 05:20 Magnesium Level 2.1 mg/dL (1.8-2.4) Thyroid Stimulating Hormone (TSH) 3.364 uIU/mL (0.358-3.74) Sodium Level 139 mmol/L (136-145) Potassium Level 3.4 mmol/L (3.5-5.1) Chloride Level 101 mmol/L (98-107) Carbon Dioxide Level 27 mmol/L (21-32) Anion Gap 11 (6-14) Blood Urea Nitrogen 12 mg/dL (8-26) Creatinine 1.2 mg/dL (0.7-1.3) Estimated GFR (Cockcroft-Gault) 77.5 Glucose Level 95 mg/dL (70-99) Calcium Level 8.7 mg/dL (8.5-10.1) MONA MUNIZ MD July 25, 2019 08:24
[2019-07-25] MEDS: LISINOPRIL 5 MG TABLET. PO SCH (08:48)
[2019-07-25] MEDS: POTASSIUM CHLORIDE 20 MEQ TABLET.ER. PO SCH (08:49)
[2019-07-25] MEDS: ASPIRIN ENTERIC COATED 81 MG TABLET.DR. PO SCH (08:49)
[2019-07-25] MEDS: cloNIDine HCL 0.1 MG TABLET PO PRN ×2 (08:49→23:27)
[2019-07-25] MEDS: PANTOPRAZOLE 40 MG TABLET.DR. PO SCH (08:50)
[2019-07-25] MEDS: amLODIPine BESYLATE 5 MG TABLET PO SCH (08:50)
[2019-07-25] MEDS: ENOXAPARIN 40 MG/0.4 ML SYRINGE. SQ SCH (08:50)
[2019-07-25] MEDS ORDERED: CLON0.3T PO (08:54)
[2019-07-25] MEDS ORDERED: METO50TA6 PO (08:54)
[2019-07-25] MEDS ORDERED: AMLO1TAB97 PO (08:54)
--- NOTE | 2019-07-25 09:48 | PDOC ---
SOHAIL DUPONT COMMISSIONING ENGINEER 07/25/19 0948: CARDIO Progress Notes Date and Time Date of Service 07/25/2019 Time of Evaluation 0930 Subjective Subjective: No Chest Pain, No shortness of breath, No Palpitations Vitals Vitals Vital Signs Date Time Temp Pulse Resp B/P (MAP) Pulse Ox O2 Delivery O2 Flow Rate FiO2 07/25/19 08:50 76 182/107 07/25/19 08:00 Room Air 07/25/19 07:51 98.3 20 100 2.0 98.3 Weight Weight [ ] Input and Output Intake and Output Intake and Output 07/25/19 07:00 Intake Total 660 ml Balance 660 ml Intake Oral 660 ml # Voids 2 Laboratory Labs Laboratory Tests Test 07/24/19 12:30 07/25/19 05:20 Magnesium Level 2.1 mg/dL (1.8-2.4) Thyroid Stimulating Hormone (TSH) 3.364 uIU/mL (0.358-3.74) Sodium Level 139 mmol/L (136-145) Potassium Level 3.4 mmol/L (3.5-5.1) Chloride Level 101 mmol/L (98-107) Carbon Dioxide Level 27 mmol/L (21-32) Anion Gap 11 (6-14) Blood Urea Nitrogen 12 mg/dL (8-26) Creatinine 1.2 mg/dL (0.7-1.3) Estimated GFR (Cockcroft-Gault) 77.5 Glucose Level 95 mg/dL (70-99) Calcium Level 8.7 mg/dL (8.5-10.1) Physical Exam HEENT: Neck Supple W Full Motion Chest: Symmetric LUNGS: Clear to Auscultation Heart: S1S2, RRR (SR) Abdomen: Soft N/T Extremities: No Calf Tenderness Neurology: alert, oriented, follow commands Assessment Assessment 1. PND: possibly from EARLE and diastolic CHF. Does have granulomatous disease per chest CT. pulmonary following 2. Suspect chronic diastolic CHF: compensated. EF and WM nml 3. HTN: labile 4. HLP: not on goal 5. Obesity 6. Hypokalemia Recommendations 1. Trend BP and will adjust BP meds accordingly. Dietitian consult for DASH diet and wt loss 2. Renin/mihaela. EARLE w/u as an outpt 3. Consider outpt stress test for further risk stratification 4. Start on statin SAIDA GARCIA MD 07/25/19 1657: CARDIO Progress Notes Plan Plan Pt. seen and examined. Agree with above KNOCKUP WORKER note. Supportive care. Discussed with patient. Plan for outpt ischemic eval Continue BP med titration. Prefer he stop clonidine. SOHAIL DUPONT APRN July 25, 2019 09:48 SAIDA GARCIA MD July 25, 2019 16:57
[2019-07-25] MEDS ORDERED: amLODIPine BESYLATE 5 MG TABLET PO ONE (11:15)
[2019-07-25] MEDS ORDERED: LOSARTAN POTASSIUM 50 MG TABLET. PO SCH (11:15)
--- NOTE | 2019-07-25 12:12 | PDOC ---
PROGRESS NOTES Chief Complaint Chief Complaint 1 atypical chest pain 2. Hypoexpanded exam with mild interstitial opacities bilaterally. Could be secondary to interstitial infiltrate or mild edema.Nodular opacity at the right lower lung. Some possible causes would include nodular atelectasis, infectious or inflammatory causes as well as lung neoplasm. consider CT of the chest. 3. hypertension 4. hypokalemia , on replacement 5. possible GERD 6/. Possible obstructive sleep apnea 7. suspect chronic diastolic CHF compensated, EF 8. Obesity with a BMI of 32 Plan: 1. Trend BP and will adjust BP meds accordingly. Dietitian consult for DASH diet and wt loss 2. Renin/mihaela. EARLE w/u as an outpt 3. Consider outpt stress test for further risk stratification 4. Start on statin History of Present Illness History of Present Illness No acute events reported overnight, case discussed with nursing staff patient in no acute distress no complaints during my visit Vitals Vitals Vital Signs Date Time Temp Pulse Resp B/P (MAP) Pulse Ox O2 Delivery O2 Flow Rate FiO2 07/25/19 11:31 90 177/99 07/25/19 11:08 98.2 20 98 Nasal Cannula 2.0 98.2 Physical Exam Physical Exam General: Alert, Oriented X3, Cooperative, No acute distress HEENT: Mucous membr. moist/pink Lungs: Clear to auscultation, Normal air movement Heart: S1S2, RRR, no thrills, no gallops, no murmurs Abdomen: Normal bowel sounds, Soft Rectal Exam: not examined Extremities: No cyanosis, No edema Neuro: Normal speech, Cranial nerves 3-12 NL Psych/Mental Status: Mental status NL, Mood NL General: Alert, Oriented X3, Cooperative, No acute distress Abdomen: Normal bowel sounds, Soft Extremities: No cyanosis, No edema Labs LABS Laboratory Tests Test 07/24/19 12:30 07/25/19 05:20 Magnesium Level 2.1 mg/dL (1.8-2.4) Thyroid Stimulating Hormone (TSH) 3.364 uIU/mL (0.358-3.74) Sodium Level 139 mmol/L (136-145) Potassium Level 3.4 mmol/L (3.5-5.1) Chloride Level 101 mmol/L (98-107) Carbon Dioxide Level 27 mmol/L (21-32) Anion Gap 11 (6-14) Blood Urea Nitrogen 12 mg/dL (8-26) Creatinine 1.2 mg/dL (0.7-1.3) Estimated GFR (Cockcroft-Gault) 77.5 Glucose Level 95 mg/dL (70-99) Calcium Level 8.7 mg/dL (8.5-10.1) Assessment and Plan Assessmemt and Plan Problems Medical Problems: (1) Chest pain Status: Acute Comment Review of Relevant I have reviewed the following items ayo (where applicable) has been applied. Labs Laboratory Tests Test 07/24/19 08:10 07/24/19 12:30 07/25/19 05:20 White Blood Count 6.3 x10^3/uL (4.0-11.0) Red Blood Count 5.53 x10^6/uL (4.30-5.70) Hemoglobin 13.3 g/dL (13.0-17.5) Hematocrit 41.3 % (39.0-53.0) Mean Corpuscular Volume 75 fL (79-100) Mean Corpuscular Hemoglobin 24 pg (25-35) Mean Corpuscular Hemoglobin Concent 32 g/dL (31-37) Red Cell Distribution Width 14.3 % (11.5-14.5) Platelet Count 254 x10^3/uL (140-400) Neutrophils (%) (Auto) 59 % (31-73) Lymphocytes (%) (Auto) 28 % (24-48) Monocytes (%) (Auto) 10 % (0-9) Eosinophils (%) (Auto) 2 % (0-3) Basophils (%) (Auto) 1 % (0-3) Neutrophils # (Auto) 3.7 x10^3/uL (1.8-7.7) Lymphocytes # (Auto) 1.7 x10^3/uL (1.0-4.8) Monocytes # (Auto) 0.7 x10^3/uL (0.0-1.1) Eosinophils # (Auto) 0.1 x10^3/uL (0.0-0.7) Basophils # (Auto) 0.0 x10^3/uL (0.0-0.2) D-Dimer (Yolanda) < 0.27 ug/mlFEU Sodium Level 137 mmol/L (136-145) 139 mmol/L (136-145) Potassium Level 3.2 mmol/L (3.5-5.1) 3.4 mmol/L (3.5-5.1) Chloride Level 101 mmol/L (98-107) 101 mmol/L (98-107) Carbon Dioxide Level 32 mmol/L (21-32) 27 mmol/L (21-32) Anion Gap 4 (6-14) 11 (6-14) Blood Urea Nitrogen 16 mg/dL (8-26) 12 mg/dL (8-26) Creatinine 1.3 mg/dL (0.7-1.3) 1.2 mg/dL (0.7-1.3) Estimated GFR (Cockcroft-Gault) 70.7 77.5 BUN/Creatinine Ratio 12 (6-20) Glucose Level 101 mg/dL (70-99) 95 mg/dL (70-99) Calcium Level 8.7 mg/dL (8.5-10.1) 8.7 mg/dL (8.5-10.1) Total Bilirubin 0.3 mg/dL (0.2-1.0) Aspartate Amino Transf (AST/SGOT) 23 U/L (15-37) Alanine Aminotransferase (ALT/SGPT) 37 U/L (16-63) Alkaline Phosphatase 107 U/L (46-116) Troponin I Quantitative < 0.017 ng/mL (0.000-0.055) SL-[id number]-[id number]-Type Natriuretic Peptide 69 pg/mL (0-124) Total Protein 7.3 g/dL (6.4-8.2) Albumin 4.0 g/dL (3.4-5.0) Albumin/Globulin Ratio 1.2 (1.0-1.7) Triglycerides Level 49 mg/dL (0-150) Cholesterol Level 216 mg/dL (0-200) LDL Cholesterol, Calculated 169 mg/dL (0-100) VLDL Cholesterol, Calculated 10 mg/dL (0-40) Non-HDL Cholesterol Calculated 179 mg/dL (0-129) HDL Cholesterol 37 mg/dL (40-60) Cholesterol/HDL Ratio 5.8 Magnesium Level 2.1 mg/dL (1.8-2.4) Thyroid Stimulating Hormone (TSH) 3.364 uIU/mL (0.358-3.74) Laboratory Tests Test 07/24/19 12:30 07/25/19 05:20 Magnesium Level 2.1 mg/dL (1.8-2.4) Thyroid Stimulating Hormone (TSH) 3.364 uIU/mL (0.358-3.74) Sodium Level 139 mmol/L (136-145) Potassium Level 3.4 mmol/L (3.5-5.1) Chloride Level 101 mmol/L (98-107) Carbon Dioxide Level 27 mmol/L (21-32) Anion Gap 11 (6-14) Blood Urea Nitrogen 12 mg/dL (8-26) Creatinine 1.2 mg/dL (0.7-1.3) Estimated GFR (Cockcroft-Gault) 77.5 Glucose Level 95 mg/dL (70-99) Calcium Level 8.7 mg/dL (8.5-10.1) Medications Current Medications Aspirin (Aspirin Chewable) 324 mg 1X ONCE PO Last administered on 07/24/19at 08:30; Start 07/24/19 at 07:45; Stop 07/24/19 at 07:46; Status DC Nitroglycerin (Nitrostat) 0.4 mg PRN Q5MIN PRN SL CHEST PAIN Last administered on 07/24/19at 08:34; Start 07/24/19 at 07:45 Potassium Chloride (Klor-Con) 40 meq 1X ONCE PO Last administered on 07/24/19at 11:06; Start 07/24/19 at 11:00; Stop 07/24/19 at 11:01; Status DC Potassium Chloride (Klor-Con) 20 meq DAILYWBKFT PO Last administered on 07/25/19at 08:49; Start 07/25/19 at 08:00 Sodium Chloride (Normal Saline Flush) 3 ml QSHIFT PRN IV AFTER MEDS AND BLOOD DRAWS; Start 07/24/19 at 11:15 Ondansetron HCl (Zofran) 4 mg PRN Q4HRS PRN IV NAUSEA/VOMITING; Start 07/24/19 at 11:15 Acetaminophen (Tylenol) 650 mg PRN Q4HRS PRN PO TEMP OVER 100.4F OR MILD PAIN; Start 07/24/19 at 11:15 Al Hydroxide/Mg Hydroxide (Mylanta Plus Xs) 30 ml PRN DAILY PRN PO HEARTBURN / GAS Last administered on 07/25/19at 10:49; Start 07/24/19 at 11:15 Clonidine HCl (Catapres) 0.1 mg PRN Q6HRS PRN PO SBP>160 OR DBP>90 Last administered on 07/25/19at 08:49; Start 07/24/19 at 11:15 Sodium Monofluorophosphate (Fleet Adult) 133 ml PRN DAILY PRN DE CONSTIPATION; Start 07/24/19 at 11:15 Docusate Sodium (Colace) 100 mg PRN BID PRN PO HARD STOOLS; Start 07/24/19 at 11:15 Albuterol Sulfate (Ventolin Neb Soln) 2.5 mg PRN Q4HRS PRN NEB SHORTNESS OF BREATH; Start 07/24/19 at 11:15 Guaifenesin (Robitussin) 200 mg PRN Q4HRS PRN PO COUGH; Start 07/24/19 at 11:15 Lorazepam (Ativan) 0.5 mg PRN Q4HRS PRN PO ANXIETY / AGITATION Last admini stered on 07/25/19at 02:13; Start 07/24/19 at 11:15 Enoxaparin Sodium (Lovenox 40mg Syringe) 40 mg Q24H SQ Last administered on 07/25/19at 08:50; Start 07/24/19 at 16:00 Hydralazine HCl (Apresoline Inj) 10 mg PRN Q4HRS PRN IVP ELEVATED BP, SEE COMMENTS; Start 07/24/19 at 11:15 Amlodipine Besylate (Norvasc) 5 mg DAILY PO Last administered on 07/24/19at 15:55; Start 07/24/19 at 12:00; Stop 07/24/19 at 21:29; Status DC Pantoprazole Sodium (Protonix) 40 mg DAILYAC PO Last administered on 07/25/19at 08:50; Start 07/25/19 at 07:30 Aspirin (Ecotrin) 81 mg DAILYWBKFT PO Last administered on 07/25/19at 08:49; Start 07/24/19 at 12:00 Atorvastatin Calcium (Lipitor) 40 mg QHS PO Last administered on 07/24/19at 21:07; Start 07/24/19 at 21:00 Amlodipine Besylate (Norvasc) 5 mg BID PO Last administered on 07/25/19at 08:50; Start 07/24/19 at 21:30; Stop 07/25/19 at 11:05; Status DC Lisinopril (Prinivil) 2.5 mg BID PO Last administered on 07/25/19at 08:48; Start 07/24/19 at 21:30 Amlodipine Besylate (Norvasc) 10 mg DAILY PO ; Start 07/26/19 at 09:00 Amlodipine Besylate (Norvasc) 5 mg 1X ONCE PO Last administered on 07/25/19at 11:31; Start 07/25/19 at 11:15; Stop 07/25/19 at 11:16; Status DC Losartan Potassium (Cozaar) 50 mg DAILY PO Last administered on 07/25/19at 11:31; Start 07/25/19 at 11:15 Carvedilol (Coreg) 12.5 mg BIDWMEALS PO ; Start 07/25/19 at 17:00 Active Scripts Active Reported Carlie 10-40 Mg Tablet (Amlodipine Bes/Olmesartan Med) 1 Each Tablet 1 Tab PO DAILY 30 Days Clonidine Hcl 0.3 Mg Tablet 1 Tab PO QHS Metoprolol Tartrate 50 Mg Tablet 1 Tab PO BID Vitals/I & O Vital Sign - Last 24 Hours 07/24/19 07/24/19 07/24/19 07/24/19 13:35 15:46 15:55 19:50 Temp 98.2 97.9 98.2 97.9 Pulse 59 72 75 Resp 18 18 B/P (MAP) 162/87 (112) 158/82 167/85 (112) Pulse Ox 98 99 O2 Delivery Room Air Room Air Room Air 07/24/19 07/24/19 07/24/19 07/24/19 20:00 22:16 22:23 22:24 Temp 98.6 98.6 Pulse 76 76 Resp 18 B/P (MAP) 169/93 (118) 169/93 169/93 Pulse Ox 98 O2 Delivery Room Air Room Air 07/25/19 07/25/19 07/25/19 07/25/19 00:46 02:37 07:51 08:00 Temp 98.6 98.3 98.6 98.3 Pulse 77 76 Resp 16 20 B/P (MAP) 169/87 (114) 182/107 (132) Pulse Ox 98 99 100 O2 Delivery Room Air Nasal Cannula Nasal Cannula Room Air O2 Flow Rate 2.0 2.0 07/25/19 07/25/19 07/25/19 07/25/19 08:48 08:49 08:50 11:08 Temp 98.2 98.2 Pulse 76 76 76 90 Resp 20 B/P (MAP) 182/107 182/107 182/107 177/99 (125) Pulse Ox 98 O2 Delivery Nasal Cannula O2 Flow Rate 2.0 07/25/19 07/25/19 11:31 11:31 Pulse 90 90 B/P (MAP) 177/99 177/99 Intake and Output 07/24/19 07/24/19 07/25/19 15:00 23:00 07:00 Intake Total 0 ml 120 ml 540 ml Balance 0 ml 120 ml 540 ml ED CALVILLO MD July 25, 2019 12:12
--- NOTE | 2019-07-25 12:51 | NUR ---
SS following for discharge planning. SS reviewed pt chart and discussed with pt RN. Pt is from home with spouse and is currently on room air now. Discharge plan is to home when ready. SS will continue to follow for discharge planning.
[2019-07-25] MEDS: CETIRIZINE HCL 10 MG TABLET. PO SCH (13:15)
--- NOTE | 2019-07-25 15:02 | PDOC ---
PULMONARY PROGRESS NOTES Subjective Patient feels better less short of air continues to awaken in the middle of the night gasping for air Vitals Vital Signs Date Time Temp Pulse Resp B/P (MAP) Pulse Ox O2 Delivery O2 Flow Rate FiO2 07/25/19 13:45 84 164/99 (120) 07/25/19 11:08 98.2 20 98 Nasal Cannula 2.0 98.2 ROS: No Nausea, No Chest Pain, No Abdominal Pain, No Increase Cough General: Alert Lungs: Clear Cardiovascular: S1, S2 Abdomen: Soft Neuro Exam: Alert Extremities: No Edema Skin: Warm Labs Laboratory Tests Test 07/24/19 08:10 07/24/19 12:30 07/25/19 05:20 White Blood Count 6.3 x10^3/uL (4.0-11.0) Red Blood Count 5.53 x10^6/uL (4.30-5.70) Hemoglobin 13.3 g/dL (13.0-17.5) Hematocrit 41.3 % (39.0-53.0) Mean Corpuscular Volume 75 fL (79-100) Mean Corpuscular Hemoglobin 24 pg (25-35) Mean Corpuscular Hemoglobin Concent 32 g/dL (31-37) Red Cell Distribution Width 14.3 % (11.5-14.5) Platelet Count 254 x10^3/uL (140-400) Neutrophils (%) (Auto) 59 % (31-73) Lymphocytes (%) (Auto) 28 % (24-48) Monocytes (%) (Auto) 10 % (0-9) Eosinophils (%) (Auto) 2 % (0-3) Basophils (%) (Auto) 1 % (0-3) Neutrophils # (Auto) 3.7 x10^3/uL (1.8-7.7) Lymphocytes # (Auto) 1.7 x10^3/uL (1.0-4.8) Monocytes # (Auto) 0.7 x10^3/uL (0.0-1.1) Eosinophils # (Auto) 0.1 x10^3/uL (0.0-0.7) Basophils # (Auto) 0.0 x10^3/uL (0.0-0.2) D-Dimer (Yolanda) < 0.27 ug/mlFEU Sodium Level 137 mmol/L (136-145) 139 mmol/L (136-145) Potassium Level 3.2 mmol/L (3.5-5.1) 3.4 mmol/L (3.5-5.1) Chloride Level 101 mmol/L (98-107) 101 mmol/L (98-107) Carbon Dioxide Level 32 mmol/L (21-32) 27 mmol/L (21-32) Anion Gap 4 (6-14) 11 (6-14) Blood Urea Nitrogen 16 mg/dL (8-26) 12 mg/dL (8-26) Creatinine 1.3 mg/dL (0.7-1.3) 1.2 mg/dL (0.7-1.3) Estimated GFR (Cockcroft-Gault) 70.7 77.5 BUN/Creatinine Ratio 12 (6-20) Glucose Level 101 mg/dL (70-99) 95 mg/dL (70-99) Calcium Level 8.7 mg/dL (8.5-10.1) 8.7 mg/dL (8.5-10.1) Total Bilirubin 0.3 mg/dL (0.2-1.0) Aspartate Amino Transf (AST/SGOT) 23 U/L (15-37) Alanine Aminotransferase (ALT/SGPT) 37 U/L (16-63) Alkaline Phosphatase 107 U/L (46-116) Troponin I Quantitative < 0.017 ng/mL (0.000-0.055) [id number]-[id number]-Type Natriuretic Peptide 69 pg/mL (0-124) Total Protein 7.3 g/dL (6.4-8.2) Albumin 4.0 g/dL (3.4-5.0) Albumin/Globulin Ratio 1.2 (1.0-1.7) Triglycerides Level 49 mg/dL (0-150) Cholesterol Level 216 mg/dL (0-200) LDL Cholesterol, Calculated 169 mg/dL (0-100) VLDL Cholesterol, Calculated 10 mg/dL (0-40) Non-HDL Cholesterol Calculated 179 mg/dL (0-129) HDL Cholesterol 37 mg/dL (40-60) Cholesterol/HDL Ratio 5.8 Magnesium Level 2.1 mg/dL (1.8-2.4) Thyroid Stimulating Hormone (TSH) 3.364 uIU/mL (0.358-3.74) Laboratory Tests Test 07/25/19 05:20 Sodium Level 139 mmol/L (136-145) Potassium Level 3.4 mmol/L (3.5-5.1) Chloride Level 101 mmol/L (98-107) Carbon Dioxide Level 27 mmol/L (21-32) Anion Gap 11 (6-14) Blood Urea Nitrogen 12 mg/dL (8-26) Creatinine 1.2 mg/dL (0.7-1.3) Estimated GFR (Cockcroft-Gault) 77.5 Glucose Level 95 mg/dL (70-99) Calcium Level 8.7 mg/dL (8.5-10.1) Medications Active Scripts Medications Dose Route/Sig Max Daily Dose Days Date Category Carlie 10-40 Mg Tablet (Amlodipine Bes/Olmesartan Med) 1 Each Tablet 1 Tab PO DAILY 30 07/25/19 Reported Clonidine Hcl 0.3 Mg Tablet 1 Tab PO QHS 07/25/19 Reported Metoprolol Tartrate 50 Mg Tablet 1 Tab PO BID 07/25/19 Reported Impression . IMPRESSION: 1. Abnormal CT revealing calcified and noncalcified nodules, suspect related to granulomatous disease in a patient who has never smoked. Likelihood of this being malignancy is very low. 2. Clinical presentation compatible with obstructive sleep apnea. 3. Suspect secondary pulmonary hypertension. 4. Systemic hypertension 5. Gastric esophageal reflux, contributing to the nightly coughing short of air. Plan . Rx left for Protonix Outpatient polysomnogram Repeat CT chest in 6 to 12 months Above discussed with on telephone Patient okay to discharge home today MONA MUNIZ MD July 25, 2019 15:02
[2019-07-25] MEDS: CARVEDILOL 12.5 MG TABLET. PO SCH (16:43)
[2019-07-25] MEDS: FLUTICASONE 50MCG/NASAL SPRAY 16GM BOTTLE. NS SCH (16:45)
[2019-07-25] MEDS ORDERED: CARVEDILOL 12.5 MG TABLET. PO SCH (17:00)
[2019-07-25 17:06] LABS: BARBITURATES NEG (NEG); BENZODIAZEPINES NEG (NEG); CANNABINOIDS NEG (NEG); COCAINE NEG (NEG); METHADONE NEG (NEG); OPIATES NEG (NEG); PHENCYCLIDINE NEG (NEG)
[2019-07-25 17:07] LABS: AMPHETAMINE/METHAMPHETAMINE NEG (NEG)
[2019-07-25] MEDS: ATORVASTATIN CALCIUM 40 MG TABLET. PO SCH (20:58)
[2019-07-25] MEDS ORDERED: METOPROLOL TART IMMED RELEASE 50 MG TABLET. PO SCH (21:00)
[2019-07-25] MEDS ORDERED: cloNIDine HCL 0.3 MG TABLET PO SCH (21:00)
[2019-07-26 03:00] VITALS: BP 147/96
[2019-07-26 07:00] VITALS: BP 163/101
[2019-07-26] MEDS ORDERED: AMLODIPINE BES PO SCH (09:00)
[2019-07-26] MEDS ORDERED: amLODIPine BESYLATE 5 MG TABLET PO SCH (09:00)
[2019-07-26] MEDS ORDERED: OLMESARTAN MED PO SCH (09:00)
[2019-07-26] MEDS ORDERED: LOSARTAN POTASSIUM 50 MG TABLET. PO SCH (09:30)
[2019-07-26] MEDS: FLUTICASONE 50MCG/NASAL SPRAY 16GM BOTTLE. NS SCH (09:54)
[2019-07-26] MEDS: POTASSIUM CHLORIDE 20 MEQ TABLET.ER. PO SCH (09:55)
[2019-07-26] MEDS: ASPIRIN ENTERIC COATED 81 MG TABLET.DR. PO SCH (09:55)
[2019-07-26] MEDS: CARVEDILOL 12.5 MG TABLET. PO SCH (09:56)
[2019-07-26] MEDS: CETIRIZINE HCL 10 MG TABLET. PO SCH (09:56)
[2019-07-26] MEDS: PANTOPRAZOLE 40 MG TABLET.DR. PO SCH (09:56)
[2019-07-26] MEDS: ENOXAPARIN 40 MG/0.4 ML SYRINGE. SQ SCH (09:57)
[2019-07-26 11:03] VITALS: BP 179/106
--- NOTE | 2019-07-26 12:23 | PDOC ---
CARDIO Progress Notes Date and Time Date of Service 07/26/2019 Time of Evaluation 1030 Subjective Subjective: No Chest Pain, No shortness of breath, No Palpitations Vitals Vitals Vital Signs Date Time Temp Pulse Resp B/P (MAP) Pulse Ox O2 Delivery O2 Flow Rate FiO2 07/26/19 11:03 98.1 97 20 179/106 (130) 99 Room Air 98.1 07/25/19 11:08 2.0 Weight Weight [ ] Input and Output Intake and Output Intake and Output 07/26/19 07:00 Intake Total 1300 ml Output Total 1000 ml Balance 300 ml Intake Oral 1300 ml Output Gastric Drainage Total 1000 ml Laboratory Labs Laboratory Tests Test 07/25/19 16:51 Urine Opiates Screen Neg (NEG) Urine Methadone Screen Neg (NEG) Urine Barbiturates Neg (NEG) Urine Phencyclidine Screen Neg (NEG) Urine Amphetamine/Methamphetamine Neg (NEG) Urine Benzodiazepines Screen Neg (NEG) Urine Cocaine Screen Neg (NEG) Urine Cannabinoids Screen Neg (NEG) Urine Ethyl Alcohol Neg (NEG) Microbiology Micro Microbiology 07/24/19 Blood Culture - Preliminary, Resulted NO GROWTH AFTER 1 DAY Physical Exam HEENT: Neck Supple W Full Motion Chest: Symmetric LUNGS: Clear to Auscultation Heart: S1S2, RRR (SR) Abdomen: Soft N/T Extremities: No Edema, No Calf Tenderness Neurology: alert, oriented, follow commands Assessment Assessment 1. PND: possibly from EARLE and diastolic CHF. Does have granulomatous disease per chest CT. pulmonary following 2. Suspect chronic diastolic CHF: compensated. EF and WM nml 3. HTN: labile 4. HLP: not on goal. Statin 5. Obesity 6. Hypokalemia: replaced. Recommendations 1. DASH diet. BP meds, no clonidine. Coreg 12.5 mg po bid. losartan 100 mg daily. Norvasc 10 mg daily. Await renin/mihaela. If BP is better this afternoon then may DC today 2. EARLE w/u as an outpt 3. Consider outpt stress test for further risk stratification 4. Discussed HBPM bid for the next week and to report if outside parameters discussed. 5. Last renal duplex 2014 unremarkable. Will consider repeat as an outpt. 6. Follow up in office as scheduled SOHAIL DUPONT APRN July 26, 2019 12:23
[2019-07-26] MEDS ORDERED: CARVEDILOL 6.25 MG TABLET. PO ONE (12:30)
--- NOTE | 2019-07-26 13:00 | NUR ---
SS following up with discharge planning. SS reviewed pt chart and discussed with pt RN. Pt is currently on room air. Per RN, no SS needs at this time. Possible discharge to home today. SS will continue to follow for discharge planning.
--- NOTE | 2019-07-26 13:01 | PDOC ---
PULMONARY PROGRESS NOTES Subjective Patient feels better less short of air continues to awaken in the middle of the night gasping for air Vitals Vital Signs Date Time Temp Pulse Resp B/P (MAP) Pulse Ox O2 Delivery O2 Flow Rate FiO2 07/26/19 12:29 97 179/106 07/26/19 11:03 98.1 20 99 Room Air 98.1 07/25/19 11:08 2.0 ROS: No Nausea, No Chest Pain, No Abdominal Pain, No Increase Cough General: Alert Lungs: Clear Cardiovascular: S1, S2 Abdomen: Soft Neuro Exam: Alert Extremities: No Edema Skin: Warm Labs Laboratory Tests Test 07/25/19 05:20 07/25/19 16:51 Sodium Level 139 mmol/L (136-145) Potassium Level 3.4 mmol/L (3.5-5.1) Chloride Level 101 mmol/L (98-107) Carbon Dioxide Level 27 mmol/L (21-32) Anion Gap 11 (6-14) Blood Urea Nitrogen 12 mg/dL (8-26) Creatinine 1.2 mg/dL (0.7-1.3) Estimated GFR (Cockcroft-Gault) 77.5 Glucose Level 95 mg/dL (70-99) Calcium Level 8.7 mg/dL (8.5-10.1) Urine Opiates Screen Neg (NEG) Urine Methadone Screen Neg (NEG) Urine Barbiturates Neg (NEG) Urine Phencyclidine Screen Neg (NEG) Urine Amphetamine/Methamphetamine Neg (NEG) Urine Benzodiazepines Screen Neg (NEG) Urine Cocaine Screen Neg (NEG) Urine Cannabinoids Screen Neg (NEG) Urine Ethyl Alcohol Neg (NEG) Laboratory Tests Test 07/25/19 16:51 Urine Opiates Screen Neg (NEG) Urine Methadone Screen Neg (NEG) Urine Barbiturates Neg (NEG) Urine Phencyclidine Screen Neg (NEG) Urine Amphetamine/Methamphetamine Neg (NEG) Urine Benzodiazepines Screen Neg (NEG) Urine Cocaine Screen Neg (NEG) Urine Cannabinoids Screen Neg (NEG) Urine Ethyl Alcohol Neg (NEG) Medications Active Scripts Medications Dose Route/Sig Max Daily Dose Days Date Category Carlie 10-40 Mg Tablet (Amlodipine Bes/Olmesartan Med) 1 Each Tablet 1 Tab PO DAILY 30 07/25/19 Reported Clonidine Hcl 0.3 Mg Tablet 1 Tab PO QHS 07/25/19 Reported Metoprolol Tartrate 50 Mg Tablet 1 Tab PO BID 07/25/19 Reported Impression . IMPRESSION: 1. Abnormal CT revealing calcified and noncalcified nodules, suspect related to granulomatous disease in a patient who has never smoked. Likelihood of this being malignancy is very low. 2. Clinical presentation compatible with obstructive sleep apnea. 3. Suspect secondary pulmonary hypertension. 4. Systemic hypertension 5. Gastric esophageal reflux, contributing to the nightly coughing short of air. Plan . Rx left for Protonix Outpatient polysomnogram Repeat CT chest in 6 to 12 months Above discussed with on telephone Patient okay to discharge home today MONA MUNIZ MD July 26, 2019 13:01
[2019-07-26] MEDS ORDERED: ALBU2.5V8 NEB (14:41)
[2019-07-26] MEDS ORDERED: CARV12.511 PO (14:41)
[2019-07-26] MEDS ORDERED: CETI10TA16 PO (14:41)
[2019-07-26] MEDS ORDERED: LOSA-73 PO (14:41)
[2019-07-26] MEDS ORDERED: ASPI-612 PO (14:41)
[2019-07-26] MEDS ORDERED: ATOR40TA59 PO (14:41)
[2019-07-26] MEDS ORDERED: AMLO5TAB10 PO (14:41)
[2019-07-26] MEDS ORDERED: FLUT16SP NS (14:41)
--- NOTE | 2019-07-26 14:47 | PDOC3 ---
Discharge Summary Visit Information Date of Admission: July 24, 2019 Date of Discharge: July 26, 2019 Admitting Diagnosis Comment: 1 atypical chest pain 2. Hypoexpanded exam with mild interstitial opacities bilaterally. Could be secondary to interstitial infiltrate or mild edema.Nodular opacity at the right lower lung. Some possible causes would include nodular atelectasis, infectious or inflammatory causes as well as lung neoplasm. consider CT of the chest. 3. hypertension 4. hypokalemia , on replacement 5. possible GERD 6/. Possible obstructive sleep apnea Final Diagnosis Problems 1 atypical chest pain 2. Hypoexpanded exam with mild interstitial opacities bilaterally. Could be secondary to interstitial infiltrate or mild edema.Nodular opacity at the right lower lung. Granulomatous disease very low suspicion for malignancy. Pulmonary dairy feed sales consultant recommendations greatly appreciated 3. hypertension 4. hypokalemia , on replacement 5. possible GERD 6/. Possible obstructive sleep apnea 7. suspect chronic diastolic CHF compensated, EF 8. Obesity with a BMI of 32 9. Obesity hypoventilation syndrome, will need outpatient sleep study 10. Allergic rhinitis Brief Hospital Course Allergies Allergies Coded Allergies Type Severity Reaction Last Updated Verified No Known Drug Allergies 06/14/19 No Vital Signs Vital Signs Date Time Temp Pulse Resp B/P (MAP) Pulse Ox O2 Delivery O2 Flow Rate FiO2 07/26/19 12:29 97 179/106 07/26/19 11:03 98.1 20 99 Room Air 98.1 07/25/19 11:08 2.0 Lab Results Laboratory Tests Test 07/25/19 05:20 07/25/19 16:51 Sodium Level 139 mmol/L (136-145) Potassium Level 3.4 mmol/L (3.5-5.1) Chloride Level 101 mmol/L (98-107) Carbon Dioxide Level 27 mmol/L (21-32) Anion Gap 11 (6-14) Blood Urea Nitrogen 12 mg/dL (8-26) Creatinine 1.2 mg/dL (0.7-1.3) Estimated GFR (Cockcroft-Gault) 77.5 Glucose Level 95 mg/dL (70-99) Calcium Level 8.7 mg/dL (8.5-10.1) Urine Opiates Screen Neg (NEG) Urine Methadone Screen Neg (NEG) Urine Barbiturates Neg (NEG) Urine Phencyclidine Screen Neg (NEG) Urine Amphetamine/Methamphetamine Neg (NEG) Urine Benzodiazepines Screen Neg (NEG) Urine Cocaine Screen Neg (NEG) Urine Cannabinoids Screen Neg (NEG) Urine Ethyl Alcohol Neg (NEG) Laboratory Tests Test 07/25/19 16:51 Urine Opiates Screen Neg (NEG) Urine Methadone Screen Neg (NEG) Urine Barbiturates Neg (NEG) Urine Phencyclidine Screen Neg (NEG) Urine Amphetamine/Methamphetamine Neg (NEG) Urine Benzodiazepines Screen Neg (NEG) Urine Cocaine Screen Neg (NEG) Urine Cannabinoids Screen Neg (NEG) Urine Ethyl Alcohol Neg (NEG) Brief Hospital Course Mr. Kathleen is a 49 old male admitted for the above-mentioned atypical chest discomfort and also dyspnea. The patient was evaluated by pulmonary and marketing programs manager. Medications adjustments were done by our business systems consultant and the recommendations are as follows: Recommendations 1. DASH diet. BP meds, no clonidine. Coreg 12.5 mg po bid. losartan 100 mg daily. Norvasc 10 mg daily. Await renin/mihaela. If BP is better this afternoon then may DC today 2. EARLE w/u as an outpt 3. Consider outpt stress test for further risk stratification 4. Discussed HBPM bid for the next week and to report if outside parameters discussed. 5. Last renal duplex 2014 unremarkable. Will consider repeat as an outpt. 6. Follow up in office as scheduled Patient was given Flonase and Zyrtec during his hospital stay and this seemed to be the answer to his discomfort at night. Nevertheless he continued to somewhat wake up in the middle of the night gasping for air results of his echocardiogram are as follows <Conclusion> The left ventricle is normal size. The left ventricular systolic function is normal and the ejection fraction is within normal range. The Ejection Fraction is 60-65%. There is mild concentric left ventricular hypertrophy. Doppler and Color Flow revealed mild eccentric aortic regurgitation. There is no significant aortic valvular stenosis. Doppler and Color-flow revealed trace mitral regurgitation. Doppler and Color Flow revealed no tricuspid valve regurgitation noted. The ascending aorta is mildly dilated at 3.7 cm. He was deemed appropriate for dismissal from the pulmonary and business systems consultant point of view. Signs and symptoms of alarm were discussed with the patient and I have encouraged to follow-up in the outpatient setting with consultants to continue work-up. Encouraged also to follow-up in order to have a sleep study in order to address his sleep apnea. Assessment Assessment Physical Exam General: Alert, Oriented X3, Cooperative, No acute distress HEENT: Mucous membr. moist/pink Lungs: Clear to auscultation, Normal air movement Heart: S1S2, RRR, no thrills, no gallops, no murmurs Abdomen: Normal bowel sounds, Soft Rectal Exam: not examined Extremities: No cyanosis, No edema Neuro: Normal speech, Cranial nerves 3-12 NL Psych/Mental Status: Mental status NL, Mood NL General: Alert, Oriented X3, Cooperative, No acute distress Abdomen: Normal bowel sounds, Soft Extremities: No cyanosis, No edema Discharge Information Condition at Discharge: Improved Follow Up: Weeks Disposition/Orders: D/C to Home Scheduled Amlodipine Besylate (Amlodipine Besylate) 5 Mg Tablet, 10 MG PO DAILY for htn for 30 Days, #60 Prescribed by: ED CALVILLO MD on 07/26/19 1441 Aspirin (Aspirin Ec) 81 Mg Tablet.dr, 81 MG PO DAILYWBKFT for antiplatelet for 30 Days, #30 Prescribed by: ED CALVILLO MD on 07/26/19 1441 Atorvastatin Calcium (Atorvastatin Calcium) 40 Mg Tablet, 40 MG PO QHS for dyslipidemia for 30 Days, #30 Prescribed by: ED CALVILLO MD on 07/26/19 1441 Carvedilol (Carvedilol ) 12.5 Mg Tablet, 12.5 MG PO BIDWMEALS for htn for 30 Days, #60 Prescribed by: ED CALVILLO MD on 07/26/19 1441 Cetirizine Hcl (Cetirizine Hcl) 10 Mg Tablet, 10 MG PO DAILY for allergies for 30 Days, #30 Prescribed by: ED CALVILLO MD on 07/26/19 1441 Clonidine Hcl (Clonidine Hcl) 0.3 Mg Tablet, 1 TAB PO QHS for htn, #30 Ref 2 (Reported) Entered as Reported by: TONY DURAND on 07/25/19 0854 Last Action: Continued on 07/25/19 1314 by ED CALVILLO MD Fluticasone Propionate (Fluticasone Propionate Nasal [place]) 16 Gm [place].susp, 2 SPRAY NS DAILY for allergies for 30 Days, #1 Prescribed by: ED CALVILLO MD on 07/26/19 1441 Losartan Potassium (Cozaar ) 50 Mg Tablet, 100 MG PO DAILY for HTN for 30 Days, #60 Prescribed by: ED CALVILLO MD on 07/26/19 1441 Scheduled PRN Albuterol Sulfate (Proair Hfa) 8.5 Gm Hfa.aer.ad, 2.5 MG NEB PRN Q4HRS PRN for SHORTNESS OF BREATH for 30 Days, #1 Prescribed by: ED CALVILLO MD on 07/26/19 1441 Discontinued Medications Amlodipine Bes/Olmesartan Med (Carlie 10-40 Mg Tablet) 1 Each Tablet, 1 TAB PO DAILY for HTN for 30 Days, #30 Ref 0 (Reported) Entered as Reported by: TONY DURAND on 07/25/19853 Last Action: Converted on 07/25/191313 by ED CALVILLO MD Metoprolol Tartrate (Metoprolol Tartrate) 50 Mg Tablet, 1 TAB PO BID for HTN, #60 Ref 5 (Reported) Entered as Reported by: TONY DURAND on 07/25/19853 Last Action: Continued on 07/25/191313 by MD KARLI DONOHUE HECTOR M MD July 26, 2019 14:47
[2019-07-26 15:02] VITALS: BP 154/96
--- NOTE | 2019-07-26 15:27 | NUR ---
Discharge Note: NEYDA SETH Discharge instructions and discharge home medications reviewed with Patient and a copy given. All questions have been answered and understanding verbalized. The following instructions and handouts were given: HTN Discontinued lines and drains: Peripheral IV intact. Patient discharged to Home or Self Care with Self via Ambulated
[2019-07-26] MEDS ORDERED: CARVEDILOL 12.5 MG TABLET. PO SCH (17:00)
== END 2019-07-26 15:28 | disposition home or self-care (01) | DRG 313 ==
LOC: ER 06:49 → 6 SOUTH 10:10 → OBSVTOIN 13:16
PROVIDERS: ADMIT Family Medicine; ATTEND Family Medicine
DX: R07.89 Other chest pain (principal); E66.2 Morbid (severe) obesity with alveolar hypoventilation; I50.32 Chronic diastolic (congestive) heart failure; K21.9 Gastro-esophageal reflux disease without esophagitis; E87.6 Hypokalemia; D71 Functional disorders of polymorphonuclear neutrophils; I11.0 Hypertensive heart disease with heart failure; E78.5 Hyperlipidemia, unspecified; H54.61 Unqualified visual loss, right eye, normal vision left eye; I25.10 Atherosclerotic heart disease of native coronary artery without angina pectoris; I35.1 Nonrheumatic aortic (valve) insufficiency; I37.1 Nonrheumatic pulmonary valve insufficiency; J30.9 Allergic rhinitis, unspecified; J84.10 Pulmonary fibrosis, unspecified; Z68.32 Body mass index [BMI] 32.0-32.9, adult; Z79.899 Other long term (current) drug therapy; Z82.49 Family history of ischemic heart disease and other diseases of the circulatory system; Z90.01 Acquired absence of eye
CPT/HCPCS: 36415; 71045; 71250; 80048; 80053; 80061; 80307; 82088; 83735; 83880; 84244; 84443; 84484; 85025; 85379; 87040; 93005; 93306; 94640; G0378; G0379; J0360; J1650

== ENCOUNTER 2019-10-18 21:03 | Emergency (ER) | payer BC ==
[~2019-10-18] VITALS: Ht 180.3 cm; Wt 110.0 kg
[~2019-10-18 21:03] MED LIST: ALBU2.5V8 NEB; AMLO1TAB97 PO; AMLO5TAB10 PO; ASPI-886 PO; ATOR40TA59 PO; CARV12.511 PO; CETI10TA16 PO; CLON0.3T PO; FLUT16SP NS; LOSA-73 PO; METO50TA6 PO
[2019-10-18] MEDS ORDERED: ASPIRIN 325 MG TABLET PO ONE (22:30)
[2019-10-18] MEDS ORDERED: IV NORMAL SALINE 1000ML BAG 1,000 ML IV ONE (22:30)
[2019-10-18 22:52] LABS: BASO # 0.1 x10^3/uL (0.0-0.2); BASO % 1 % (0-3); EOS # 0.1 x10^3/uL (0.0-0.7); EOS % 3 % (0-3); HEMATOCRIT 37.9 % (39.0-53.0); HEMOGLOBIN 12.8 g/dL (13.0-17.5); LYMPH # 1.9 x10^3/uL (1.0-4.8); LYMPH % 33 % (24-48); MEAN CORPUSCULAR HEMOGLOBIN 25 pg (25-35); MEAN CORPUSCULAR HGB CONC 34 g/dL (31-37); MEAN CORPUSCULAR VOLUME 74 fL (79-100); MONO # 0.6 x10^3/uL (0.0-1.1); MONO % 11 % (0-9); NEUT # 3.1 x10^3/uL (1.8-7.7); NEUT % 53 % (31-73); PLATELET COUNT 245 x10^3/uL (140-400); RED BLOOD COUNT 5.09 x10^6/uL (4.30-5.70); RED CELL DISTRIBUTION WIDTH 14.9 % (11.5-14.5); WHITE BLOOD COUNT 5.8 x10^3/uL (4.0-11.0)
[2019-10-18 22:54] LABS: BILIRUBIN,URINE NEGATIVE (NEG); CLARITY,URINE CLEAR; NITRITE,URINE NEGATIVE (NEG); PH,URINE 7.5 (<5.0-8.0); PROTEIN,URINE NEGATIVE (NEG-TRACE)
[2019-10-18 22:58] LABS: COLOR,URINE STRAW
[2019-10-18 23:00] LABS: BACTERIA,URINE 0 /HPF (0-FEW); RBC,URINE OCC /HPF (0-2); WBC,URINE RARE /HPF (0-4)
[2019-10-18 23:01] LABS: PROTHROMBIN TIME PATIENT 12.9 SEC (11.7-14.0)
--- NOTE | 2019-10-18 23:02 | PHYS DOC ---
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 The chest pain is pressure feeling in nature and focused on the right lower part of his chest and radiates to his back occasionally. The pain is not associated with any activity at all. He has had similar pain in the past for which he is come to the ER and been admitted to the hospital. He was admitted to the hospital in July for similar chest pain. He does not have any previously diagnosed heart conditions that he is aware of. He does have hypertension which he taking medications for. He is currently not in acute distress or diaphoretic. He does not characterize this pain as severe. Review of Systems: Review of Systems: Constitutional: Denies fever or chills Eyes: Denies redness or eye pain HENT: Denies nasal congestion or sore throat Respiratory: Denies cough or shortness of breath Cardiovascular: Reports chest pain GI: Denies abdominal pain, nausea, or vomiting : Denies dysuria or hematuria Musculoskeletal: Denies back pain or joint pain Integument: Denies rash or skin lesions Neurologic: Denies headache, focal weakness or sensory changes Complete systems were reviewed and found to be within normal limits, except as documented in this note. Heart Score: HEART Score for Chest Pain: HEART Score for Chest Pain Response (Comments) Value ECG Normal 0 Age >45 - < 65 1 Risk Factors 1 or 2 Risk Factors 1 Troponin < Normal Limit 0 Total 2 Risk Factors: Risk Factors: DM, Current or recent (<one month) smoker, HTN, HLP, family history of CAD, obesity. Risk Scores: Score 0 - 3: 2.5% MACE over next 6 weeks - Discharge Home Score 4 - 6: 20.3% MACE over next 6 weeks - Admit for Clinical Observation Score 7 - 10: 72.7% MACE over next 6 weeks - Early Invasive Strategies Current Medications: Current Medications Medications (Trade) Dose Ordered Sig/Dwayne Start Time Stop Time Status Last Admin Dose Admin Aspirin (Brenna Aspirin) 325 mg 1X ONCE 10/18/19 22:30 10/18/19 22:31 DC 10/18/19 22:49 325 MG Sodium Chloride 1,000 ml @ 1,000 mls/hr 1X ONCE 10/18/19 22:30 10/18/19 23:29 10/18/19 22:49 1,000 MLS/HR Allergies: Allergies: Allergies Coded Allergies Type Severity Reaction Last Updated Verified No Known Drug Allergies 06/14/19 No Physical Exam: PE: Constitutional: Well developed, well nourished, no acute distress, non-toxic appearance HENT: Normocephalic, atraumatic, oropharynx moist Eyes: PERRL, EOMI, conjunctiva normal, no discharge Neck: Normal range of motion, no tenderness, supple Lungs & Thorax: No respiratory distress. Equal rise and fall of chest bilaterally Abdomen: Soft, no tenderness Skin: Warm, dry, no erythema, no rash Back: No tenderness, no CVA tenderness Extremities: No tenderness, ROM intact, no edema Neurologic: Alert and oriented X 3, normal motor function, normal sensory function, no focal deficits noted Psychologic: Affect normal, judgment normal Current Patient Data: Labs: Laboratory Tests Test 10/18/19 22:35 White Blood Count 5.8 x10^3/uL (4.0-11.0) Red Blood Count 5.09 x10^6/uL (4.30-5.70) Hemoglobin 12.8 g/dL (13.0-17.5) L Hematocrit 37.9 % (39.0-53.0) L Mean Corpuscular Volume 74 fL (79-100) L Mean Corpuscular Hemoglobin 25 pg (25-35) Mean Corpuscular Hemoglobin Concent 34 g/dL (31-37) Red Cell Distribution Width 14.9 % (11.5-14.5) H Platelet Count 245 x10^3/uL (140-400) Neutrophils (%) (Auto) 53 % (31-73) Lymphocytes (%) (Auto) 33 % (24-48) Monocytes (%) (Auto) 11 % (0-9) H Eosinophils (%) (Auto) 3 % (0-3) Basophils (%) (Auto) 1 % (0-3) Neutrophils # (Auto) 3.1 x10^3/uL (1.8-7.7) Lymphocytes # (Auto) 1.9 x10^3/uL (1.0-4.8) Monocytes # (Auto) 0.6 x10^3/uL (0.0-1.1) Eosinophils # (Auto) 0.1 x10^3/uL (0.0-0.7) Basophils # (Auto) 0.1 x10^3/uL (0.0-0.2) Laboratory Tests 10/18/19 22:35 Vital Signs: Vital Signs Date Time Temp Pulse Resp B/P (MAP) Pulse Ox O2 Delivery O2 Flow Rate FiO2 10/18/19 21:35 98.1 75 18 184/100 (128) 99 98.1 EKG: EKG: @2254 regular rate and rhythm at 68 BPM, [place]=087, QT/QTc= 384/413, no ST elevations Radiology/Procedures: Radiology/Procedures: PROCEDURE: CT ANGIOGRAPHY CHEST ABDOMEN EXAM: CT ANGIOGRAM CHEST AND ABDOMEN WITH AND WITHOUT IV CONTRAST CLINICAL HISTORY: Reason: chest pain with radiation to back eval for dissection / Spl. Instructions: [id number] 90ML / History: COMPARISON: None. TECHNIQUE: Helical CT of the chest and abdomen was performed before and following the administration of intravenous contrast during arterial phase. Axial, coronal and sagittal reformatted images were generated. 3-D/MIP images were generated. ---PQRS compliance statement - One or more of the following individualized dose reduction techniques were utilized for this study: 1. Automated exposure control 2. Adjustment of the mA and/or kV according to patient size 3. Use of iterative reconstruction technique--- FINDINGS: CT angiogram: The aorta is normal in caliber within the thorax and abdomen without evidence for aortic dissection. Bovine configuration of the aortic arch. The origin and proximal vessels of the aortic arch are widely patent. The celiac, SMA and VONNIE are widely patent. Single bilateral renal arteries are also widely patent. Chest: Heart is not enlarged. No pericardial effusion. No pleural effusion or pneumothorax. Calcified granuloma in the right lower lobe. Linear and interstitial prominence in the peripheral lungs bilaterally likely scarring/atelectasis. Atypical infectious or inflammatory process may also have this appearance. In general these findings are slightly more prominent on today's examination compared to 07/24/2019. Abdomen and Pelvis: Liver and biliary system: No focal liver lesion. Gallbladder is normal. No biliary ductal dilatation. Spleen: Unremarkable Pancreas: Unremarkable Adrenal glands: A 6 mm enhancing right adrenal nodule is seen. Kidneys: Symmetric nephrograms. No focal renal lesion. No hydronephrosis. No hydroureter. No renal calculus. Lymph nodes/retroperitoneum: No abdominal lymphadenopathy. Bowel/Peritoneal cavity: Moderate colonic stool content is seen. Appendix is normal. No small bowel dilatation. No bowel obstruction. No abdominal ascites. Abdominal wall: Unremarkable Bones: Multilevel degenerative changes of the spine are seen. No aggressive osseous lesion is noted. IMPRESSION: 1. Aorta is normal in caliber without evidence for dissection or aneurysm. 2. 6 mm enhancing right adrenal nodule is seen. Consider short interval follow-up or further evaluation with MRI indicated. 3. Calcified mediastinal and hilar lymph nodes and right lower lobe 4. Linear and interstitial prominence in the peripheral lungs bilaterally likely scarring/atelectasis. Atypical infectious or inflammatory process may also have this appearance. In general these findings are slightly more prominent on today's examination compared to 07/24/2019. Electronically signed by: Anselmo Cross MD (10/18/2019 11:56 PM) [facility] Course & Med Decision Making: Course & Med Decision Making Patient presented to the emergency department with chest pain that was not exacerbated by movement or activity. Patient had previously been seen in the emergency department and admitted to the hospital for similar symptoms. For these reasons we did a full set of labs including troponin and BNP. All labs came back within normal limits. We performed a CT angiography of the chest to rule out an abdominal aortic aneurysm or a pulmonary embolism. Imaging came back normal. Patient was slightly hypertensive but besides this, vital signs were within normal limits as well the entirety of the visit. We discussed with patient the possibility of being admitted overnight for further evaluation or for setting a outpatient cardiac stress test. When presented with the options the patient decided that he would rather be discharged tonight and follow-up outpatient with a plant ecologist to get a cardiac stress test. We advised the patient to follow-up with his plant ecologist and setter induction heating equipment. Also, if the patient felt any worsening chest pain within the next few days to return to the emergency department. Dragon Disclaimer: Dragon Disclaimer: This electronic medical record was generated, in whole or in part, using a voice recognition dictation system. Departure Departure Impression: Primary Impression: Chest pain Qualified Codes: R07.9 - Chest pain, unspecified Additional Impression: Hypokalemia Disposition: HOME, SELF-CARE Condition: STABLE Referrals: NIRAV VELASCO MD (PCP) SAIDA GARCIA MD Patient Instructions: Chest Pain (Nonspecific), [id number], Hypokalemia, Potassium Content of Foods Justicifation of Admission Dx: Justifications for Admission: Justification of Admission Dx: N/A NARCISA BUCHANAN DO Oct 18, 2019 23:02
[2019-10-18 23:07] LABS: CALCIUM 8.8 mg/dL (8.5-10.1); CREATININE 1.3 mg/dL (0.7-1.3); GFR 70.7; POTASSIUM 3.2 mmol/L (3.5-5.1)
[2019-10-18 23:13] LABS: ALBUMIN 3.9 g/dL (3.4-5.0); ALBUMIN/GLOBULIN RATIO 1.1 (1.0-1.7); MAGNESIUM 1.9 mg/dL (1.8-2.4); TOTAL BILIRUBIN 0.4 mg/dL (0.2-1.0); TOTAL PROTEIN 7.5 g/dL (6.4-8.2)
[2019-10-18] MEDS ORDERED: IOHEXOL 350 MG/ML 100 ML VIAL. IV ONE (23:30)
[2019-10-18] MEDS ORDERED: CONTRAST GIVEN. MC PRN (23:30)
--- NOTE | 2019-10-18 23:45 | PHYS DOC ---
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 [] Eyes: Denies change in visual acuity. [] HENT: Denies nasal congestion or sore throat. [] Respiratory: Denies cough or shortness of breath. [] Cardiovascular: Denies chest pain or edema. [] GI: Denies abdominal pain, nausea, vomiting, bloody stools or diarrhea. [] : Denies dysuria. [] Musculoskeletal: Denies back pain or joint pain. [] Integument: Denies rash. [] Neurologic: Denies headache, focal weakness or sensory changes. [] Endocrine: Denies polyuria or polydipsia. [] Lymphatic: Denies swollen glands. [] Psychiatric: Denies depression or anxiety. [] Heart Score: Risk Factors: Risk Factors: DM, Current or recent (<one month) smoker, HTN, HLP, family history of CAD, obesity. Risk Scores: Score 0 - 3: 2.5% MACE over next 6 weeks - Discharge Home Score 4 - 6: 20.3% MACE over next 6 weeks - Admit for Clinical Observation Score 7 - 10: 72.7% MACE over next 6 weeks - Early Invasive Strategies Current Medications: Current Medications Medications (Trade) Dose Ordered Sig/[facility] Start Time Stop Time Status Last Admin Dose Admin Aspirin (Brenna Aspirin) 325 mg 1X ONCE 10/18/19 22:30 10/18/19 22:31 Sodium Chloride 1,000 ml @ 1,000 mls/hr 1X ONCE 10/18/19 22:30 10/18/19 23:29 Allergies: Allergies: Allergies Coded Allergies Type Severity Reaction Last Updated Verified No Known Drug Allergies 06/14/19 No Physical Exam: PE: Constitutional: Well developed, well nourished, no acute distress, non-toxic appearance. [] HENT: Normocephalic, atraumatic, bilateral external ears normal, oropharynx moist, no oral exudates, nose normal. [] Eyes: PERRLA, EOMI, conjunctiva normal, no discharge. [] Neck: Normal range of motion, no tenderness, supple, no stridor. [] Cardiovascular:Heart rate regular rhythm, no murmur [] Lungs & Thorax: Bilateral breath sounds clear to auscultation [] Abdomen: Bowel sounds normal, soft, no tenderness, no masses, no pulsatile masses. [] Skin: Warm, dry, no erythema, no rash. [] Back: No tenderness, no CVA tenderness. [] Extremities: No tenderness, no cyanosis, no clubbing, ROM intact, no edema. [] Neurologic: Alert and oriented X 3, normal motor function, normal sensory function, no focal deficits noted. [] Psychologic: Affect normal, judgement normal, mood normal. [] Current Patient Data: Vital Signs: Vital Signs Date Time Temp Pulse Resp B/P (MAP) Pulse Ox O2 Delivery O2 Flow Rate FiO2 10/18/19 21:35 98.1 75 18 184/100 (128) 99 98.1 EKG: EKG: [] Radiology/Procedures: Radiology/Procedures: [] Course & Med Decision Making: Course & Med Decision Making Pertinent Labs and Imaging studies reviewed. (See chart for details) [] Dragon Disclaimer: Dragon Disclaimer: This electronic medical record was generated, in whole or in part, using a voice recognition dictation system. Departure Departure Referrals: NIRAV VELASCO MD (PCP) NARCISA BUCHANAN DO Oct 18, 2019 23:45
--- NOTE | 2019-10-18 23:59 | RAD ---
EXAM: CT ANGIOGRAM CHEST AND ABDOMEN WITH AND WITHOUT IV CONTRAST CLINICAL HISTORY: Reason: chest pain with radiation to back eval for dissection / Spl. Instructions: [id number] 90ML / History: COMPARISON: None. TECHNIQUE: Helical CT of the chest and abdomen was performed before and following the administration of intravenous contrast during arterial phase. Axial, coronal and sagittal reformatted images were generated. 3-D/MIP images were generated. ---PQRS compliance statement - One or more of the following individualized dose reduction techniques were utilized for this study: 1. Automated exposure control 2. Adjustment of the mA and/or kV according to patient size 3. Use of iterative reconstruction technique--- FINDINGS: CT angiogram: The aorta is normal in caliber within the thorax and abdomen without evidence for aortic dissection. Bovine configuration of the aortic arch. The origin and proximal vessels of the aortic arch are widely patent. The celiac, SMA and VONNIE are widely patent. Single bilateral renal arteries are also widely patent. Chest: Heart is not enlarged. No pericardial effusion. No pleural effusion or pneumothorax. Calcified granuloma in the right lower lobe. Linear and interstitial prominence in the peripheral lungs bilaterally likely scarring/atelectasis. Atypical infectious or inflammatory process may also have this appearance. In general these findings are slightly more prominent on today's examination compared to 07/24/2019. Abdomen and Pelvis: Liver and biliary system: No focal liver lesion. Gallbladder is normal. No biliary ductal dilatation. Spleen: Unremarkable Pancreas: Unremarkable Adrenal glands: A 6 mm enhancing right adrenal nodule is seen. Kidneys: Symmetric nephrograms. No focal renal lesion. No hydronephrosis. No hydroureter. No renal calculus. Lymph nodes/retroperitoneum: No abdominal lymphadenopathy. Bowel/Peritoneal cavity: Moderate colonic stool content is seen. Appendix is normal. No small bowel dilatation. No bowel obstruction. No abdominal ascites. Abdominal wall: Unremarkable Bones: Multilevel degenerative changes of the spine are seen. No aggressive osseous lesion is noted. IMPRESSION: 1. Aorta is normal in caliber without evidence for dissection or aneurysm. 2. 6 mm enhancing right adrenal nodule is seen. Consider short interval follow-up or further evaluation with MRI indicated. 3. Calcified mediastinal and hilar lymph nodes and right lower lobe 4. Linear and interstitial prominence in the peripheral lungs bilaterally likely scarring/atelectasis. Atypical infectious or inflammatory process may also have this appearance. In general these findings are slightly more prominent on today's examination compared to 07/24/2019. Electronically signed by: Anselmo Cross MD (10/18/2019 11:56 PM) KUSH
[2019-10-19 00:57] VITALS: BP 176/91
[2019-10-19] MEDS ORDERED: POTASSIUM CHLORIDE 20 MEQ TABLET.ER. PO ONE (01:00)
--- NOTE | 2019-10-19 06:38 | EKG ---
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
== END 2019-10-19 01:08 | disposition home or self-care (01) ==
LOC: ER 21:03
DX: R07.89 Other chest pain (principal); E87.6 Hypokalemia; I10 Essential (primary) hypertension
CPT/HCPCS: 36415; 71275; 74175; 80053; 81001; 82553; 83690; 83735; 83880; 84484; 85025; 85610; 85730; 93005; 96360; 99285; J7030; Q9967

== ENCOUNTER 2019-10-30 13:10 | Emergency (ER) | payer BC ==
[~2019-10-30] VITALS: Ht 180.3 cm; Wt 103.6 kg
[2019-10-30 13:48] LABS: BILIRUBIN,URINE NEGATIVE (NEG); CLARITY,URINE CLEAR; COLOR,URINE YELLOW; NITRITE,URINE NEGATIVE (NEG); PROTEIN,URINE NEGATIVE (NEG-TRACE)
[2019-10-30] MEDS ORDERED: IV NORMAL SALINE 1000ML BAG 1,000 ML IV ONE (14:00)
[2019-10-30] MEDS ORDERED: fentaNYL PF VIAL 100 MCG/2 ML VIAL IV ONE (14:00)
[2019-10-30] MEDS ORDERED: ONDANSETRON PF 4 MG/2 ML VIAL. IV ONE (14:00)
[2019-10-30 14:01] LABS: BACTERIA,URINE FEW /HPF (0-FEW); SQUAMOUS EPITHELIAL CELL,UR OCC /LPF
--- NOTE | 2019-10-30 14:35 | RAD ---
Examination: Ultrasound right upper quadrant abdomen HISTORY: History of right upper quadrant pain COMPARISON: None available FINDINGS: The pancreas, aorta, IVC are not well-visualized due to bowel gas. The echogenicity of the liver grossly appears unremarkable. No evidence of gallstones. The liver length measures 13.5 cm. The common bile duct measures 4.6 mm in transverse dimension. The right kidney measures 12.2 cm in length. IMPRESSION: Unremarkable visualized exam. Electronically signed by: Donaldo Lynn MD (10/30/2019 2:31 PM) [id number]
[2019-10-30 14:42] LABS: BASO % 1 % (0-3); EOS # 0.2 x10^3/uL (0.0-0.7); EOS % 3 % (0-3); HEMATOCRIT 39.4 % (39.0-53.0); HEMOGLOBIN 12.8 g/dL (13.0-17.5); LYMPH # 1.5 x10^3/uL (1.0-4.8); LYMPH % 28 % (24-48); MEAN CORPUSCULAR HEMOGLOBIN 24 pg (25-35); MEAN CORPUSCULAR HGB CONC 33 g/dL (31-37); MEAN CORPUSCULAR VOLUME 75 fL (79-100); MONO # 0.6 x10^3/uL (0.0-1.1); MONO % 10 % (0-9); NEUT # 3.1 x10^3/uL (1.8-7.7); NEUT % 58 % (31-73); PLATELET COUNT 230 x10^3/uL (140-400); RED BLOOD COUNT 5.26 x10^6/uL (4.30-5.70); WHITE BLOOD COUNT 5.3 x10^3/uL (4.0-11.0)
[2019-10-30 14:48] LABS: CALCIUM 8.6 mg/dL (8.5-10.1); CREATININE 1.3 mg/dL (0.7-1.3); GFR 70.7; POTASSIUM 3.5 mmol/L (3.5-5.1)
--- NOTE | 2019-10-30 14:49 | EKG ---
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
[2019-10-30 14:54] LABS: ALBUMIN 3.8 g/dL (3.4-5.0); ALBUMIN/GLOBULIN RATIO 1.1 (1.0-1.7); MAGNESIUM 1.9 mg/dL (1.8-2.4); TOTAL BILIRUBIN 0.4 mg/dL (0.2-1.0); TOTAL PROTEIN 7.3 g/dL (6.4-8.2)
[2019-10-30 15:00] VITALS: BP 154/78
[2019-10-30] MEDS ORDERED: ORPH100T PO (15:15)
[2019-10-30] MEDS ORDERED: NAPR-514 PO (15:15)
--- NOTE | 2019-10-30 15:15 | PHYS DOC ---
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 He denies any recent injury. He denies any pain in his upper extremities, patient denies any radiation of the pain to his lower back. He denies any chest pain, shortness of breath, fever, cough, body aches, fatigue, dysuria, hematuria, nausea, or vomiting. Patient reports that he has noticed increased urinary frequency. He denies any history of kidney stones or problems with his gallbladder. He denies any pain with palpation of his back. He currently rates pain a 6 out of 10 on the pain scale, he describes it as intermittent aching sensation. He denies any alleviating factors. He denies any increased pain with palpation but reports that the pain sometimes increases with movement. Review of Systems: Review of Systems: Constitutional: Denies fever or chills. [] Eyes: Denies change in visual acuity. [] HENT: Denies nasal congestion or sore throat. [] Respiratory: Denies cough or shortness of breath. [] Cardiovascular: Denies chest pain or edema. [] GI: Denies abdominal pain, nausea, vomiting, bloody stools or diarrhea. [] : Denies dysuria. [] Musculoskeletal: Denies back pain or joint pain. [] Integument: Denies rash. [] Neurologic: Denies headache, focal weakness or sensory changes. [] Endocrine: Denies polyuria or polydipsia. [] Lymphatic: Denies swollen glands. [] Psychiatric: Denies depression or anxiety. [] Heart Score: Risk Factors: Risk Factors: DM, Current or recent (<one month) smoker, HTN, HLP, family history of CAD, obesity. Risk Scores: Score 0 - 3: 2.5% MACE over next 6 weeks - Discharge Home Score 4 - 6: 20.3% MACE over next 6 weeks - Admit for Clinical Observation Score 7 - 10: 72.7% MACE over next 6 weeks - Early Invasive Strategies Current Medications: Current Medications Medications (Trade) Dose Ordered Sig/[facility] Start Time Stop Time Status Last Admin Dose Admin Fentanyl Citrate (Fentanyl 2ml Vial) 50 mcg 1X ONCE 10/30/19 14:00 10/30/19 14:01 DC 10/30/19 14:43 50 MCG Ondansetron HCl (Zofran) 4 mg 1X ONCE 10/30/19 14:00 10/30/19 14:01 DC 10/30/19 14:44 4 MG Sodium Chloride 1,000 ml @ 1,000 mls/hr 1X ONCE 10/30/19 14:00 10/30/19 14:59 DC 10/30/19 14:43 1,000 MLS/HR Allergies: Allergies: Allergies Coded Allergies Type Severity Reaction Last Updated Verified No Known Drug Allergies 06/14/19 No Physical Exam: PE: Constitutional: Well developed, well nourished, no acute distress, non-toxic appearance, obese. [] HENT: Normocephalic, atraumatic, bilateral external ears normal, oropharynx moist, nose normal. [] Eyes: PERRLA, EOMI, conjunctiva normal, no discharge. [] Neck: Normal range of motion, no stridor. [] Cardiovascular:Heart rate regular rhythm, no murmur [] Lungs & Thorax: Bilateral breath sounds clear to auscultation, respirations even and unlabored, no retractions, no respiratory distress Abdomen: soft, no tenderness, redness, no guarding, no masses, no pulsatile masses. [] Skin: Warm, dry, no erythema, no rash. [] Back: No bony or paraspinal tenderness to palpation, no CVA tenderness. [] Extremities: No cyanosis, no clubbing, ROM intact, no edema. [] Neurologic: Alert and oriented X 3, no focal deficits noted. [] Psychologic: Affect normal, judgement normal, mood normal. [] Current Patient Data: Labs: Laboratory Tests Test 10/30/19 13:25 10/30/19 14:30 Urine Collection Type Unknown Urine Color Yellow Urine Clarity Clear Urine pH 7.0 (<5.0-8.0) Urine Specific [place] 1.010 (1.000-1.030) Urine Protein Negative mg/dL (NEG-TRACE) Urine Glucose (UA) Negative mg/dL (NEG) Urine Ketones (Stick) Negative mg/dL (NEG) Urine Blood Negative (NEG) Urine Nitrite Negative (NEG) Urine Bilirubin Negative (NEG) Urine Urobilinogen Dipstick 1.0 mg/dL (0.2 mg/dL) Urine Leukocyte Esterase Negative (NEG) Urine RBC 3-5 /HPF (0-2) Urine WBC 1-4 /HPF (0-4) Urine Squamous Epithelial Cells Occ /LPF Urine Bacteria Few /HPF (0-FEW) White Blood Count 5.3 x10^3/uL (4.0-11.0) Red Blood Count 5.26 x10^6/uL (4.30-5.70) Hemoglobin 12.8 g/dL (13.0-17.5) L Hematocrit 39.4 % (39.0-53.0) Mean Corpuscular Volume 75 fL (79-100) L Mean Corpuscular Hemoglobin 24 pg (25-35) L Mean Corpuscular Hemoglobin Concent 33 g/dL (31-37) Red Cell Distribution Width 15.0 % (11.5-14.5) H Platelet Count 230 x10^3/uL (140-400) Neutrophils (%) (Auto) 58 % (31-73) Lymphocytes (%) (Auto) 28 % (24-48) Monocytes (%) (Auto) 10 % (0-9) H Eosinophils (%) (Auto) 3 % (0-3) Basophils (%) (Auto) 1 % (0-3) Neutrophils # (Auto) 3.1 x10^3/uL (1.8-7.7) Lymphocytes # (Auto) 1.5 x10^3/uL (1.0-4.8) Monocytes # (Auto) 0.6 x10^3/uL (0.0-1.1) Eosinophils # (Auto) 0.2 x10^3/uL (0.0-0.7) Basophils # (Auto) 0.0 x10^3/uL (0.0-0.2) Sodium Level 141 mmol/L (136-145) Potassium Level 3.5 mmol/L (3.5-5.1) Chloride Level 102 mmol/L (98-107) Carbon Dioxide Level 31 mmol/L (21-32) Anion Gap 8 (6-14) Blood Urea Nitrogen 13 mg/dL (8-26) Creatinine 1.3 mg/dL (0.7-1.3) Estimated GFR (Cockcroft-Gault) 70.7 BUN/Creatinine Ratio 10 (6-20) Glucose Level 117 mg/dL (70-99) H Calcium Level 8.6 mg/dL (8.5-10.1) Magnesium Level 1.9 mg/dL (1.8-2.4) Total Bilirubin 0.4 mg/dL (0.2-1.0) Aspartate Amino Transferase (AST) 21 U/L (15-37) Alanine Aminotransferase (ALT) 30 U/L (16-63) Alkaline Phosphatase 122 U/L (46-116) H Total Protein 7.3 g/dL (6.4-8.2) Albumin 3.8 g/dL (3.4-5.0) Albumin/Globulin Ratio 1.1 (1.0-1.7) Lipase 196 U/L (73-393) Laboratory Tests 10/30/19 14:30 Laboratory Tests 10/30/19 14:30 Vital Signs: Vital Signs Date Time Temp Pulse Resp B/P (MAP) Pulse Ox O2 Delivery O2 Flow Rate FiO2 10/30/19 14:43 Room Air 10/30/19 13:25 98.8 75 18 168/91 (116) 98 98.8 EKG: EKG: [] Radiology/Procedures: Radiology/Procedures: PROCEDURE: ABDOMEN LTD Examination: Ultrasound right upper quadrant abdomen HISTORY: History of right upper quadrant pain COMPARISON: None available FINDINGS: The pancreas, aorta, IVC are not well-visualized due to bowel gas. The echogenicity of the liver grossly appears unremarkable. No evidence of gallstones. The liver length measures 13.5 cm. The common bile duct measures 4.6 mm in transverse dimension. The right kidney measures 12.2 cm in length. IMPRESSION: Unremarkable visualized exam. [] Course & Med Decision Making: Course & Med Decision Making Pertinent Labs and Imaging studies reviewed. (See chart for details) 49-year-old male presents to the emergency department with complaints of upper back pain that radiates to his right upper quadrant on occasion and seems to increase about 30 minutes after he eats. He denied any nausea, or vomiting. States that he does feel clammy when the pain increases. He denies any chest pain or shortness of breath. Work-up included labs and ultrasound of his gal lbladder. There is low suspicion for an aortic dissection, acute coronary syndrome, or pulmonary embolus. CBC revealed mild anemia, CMP revealed glucose of 117, and a mild elevation in alk phos of 122 otherwise unremarkable, lipase was 196; the patient's urinalysis revealed 3-5 red blood cells, and 1-4 white blood cells, few bacteria, occasional squamous cell, low suspicion for kidney stone as the pain increases after eating. Prescriptions were written for Norflex and naproxen. I encouraged the patient to follow-up with his primary care doctor in 2 days as planned. Return to the emergency room if symptoms worsen, he develops a fever, shortness of breath, or vomiting. Patient verbalized an understanding of home care, medications, follow-up, and return to ED instructions and was in agreement with the plan of care. [] Dragon Disclaimer: Dragon Disclaimer: This electronic medical record was generated, in whole or in part, using a voice recognition dictation system. Departure Departure Impression: Primary Impression: Acute back pain Qualified Codes: M54.6 - Pain in thoracic spine Additional Impression: Radiculopathy, thoracic region Disposition: 01 HOME, SELF-CARE Condition: STABLE Referrals: NIRAV VELASCO MD (PCP) Patient Instructions: Back Pain, Adult, [id number] Additional Instructions: Fill the prescription(s) and use as directed. Apply heat or ice for to sore areas as needed for comfort. Activity as tolerated. Follow up with your primary care doctor in 1 to 2 days, return to the ER if symptoms worsen. Scripts Naproxen (NAPROXEN) 500 Mg Tablet 1 TAB PO BID PRN for PAIN for 10 Days, #20 TAB 0 Refills Prov: OSKAR RO APRN 10/30/19 Orphenadrine Citrate (ORPHENADRINE CITRATE) 100 Mg Tablet.er 1 TAB PO BID PRN for PAIN for 10 Days, #20 TAB 0 Refills Prov: OSKAR RO APRN 10/30/19 Justicifation of Admission Dx: Justifications for Admission: Justification of Admission Dx: N/A OSKAR RO APRN Oct 30, 2019 15:15
== END 2019-10-30 15:22 | disposition home or self-care (01) ==
LOC: ER 13:10
DX: M54.14 Radiculopathy, thoracic region (principal); M54.6 Pain in thoracic spine; R20.2 Paresthesia of skin; I10 Essential (primary) hypertension; Z98.890 Other specified postprocedural states
CPT/HCPCS: 36415; 76705; 80053; 81001; 83690; 83735; 85025; 93005; 96361; 96374; 96375; 99285; J2405; J3010; J7030

== ENCOUNTER → 2019-11-10 | Outpatient (CLI) | payer BC ==
[2019-10-30 15:00] VITALS: BP 154/78
[~2019-11-10] MED LIST changes: +NAPR-514 PO; +ORPH100T PO; +REGADENOSON 0.4 MG/5 ML DISP.SYRIN. IV ONE
--- NOTE | 2019-11-10 17:41 | RAD ---
MR#: [id number] Date of Study: 11/10/2019 Ordering Physician: SAIDA WETZEL, Referring Physician: CORTEZ MORFIN Tech: RT Liliana (R) (N) APPROVED REPORT Test Type: Pharmacological Stress Nurse/Tech: Marian Alexander RN Test Indications: Chest pain Cardiac History: Hypertension Medications: See Electronic Medical Record Medical History: See Electronic Medical Record Resting ECG: SR Resting Heart Rate: 66 bpm Resting Blood Pressure: 134/75mmHg Pretest Chest Pain: No chest pain Nurse/Tech Notes S1,S2 and lungs clear to auscultation. Consent: The procedure was explained to the patient in lay terms. Informed consent was witnessed. Subhash eout was entered into [employer] Cart[employer]. History and Stress Test performed by DIANN [facility]. Details Pharmacologic stress testing was performed using 0.4mg per 5ml of regadenoson given intravenously ove r 7-10 seconds. Stress Symptoms No chest pain or symptoms. POST EXERCISE Reason for Termination: Infusion complete Target HR: No Max HR: 94 bpm 65% of Maximum Predicted HR: 144 bpm Max Blood Pressure: 145/77mmHg Blood Pressure response to exercise: Normal blood pressure response during stress. Heart Rate response to exercise: WNL Chest Pain: No. Arrhythmia: No. ST Change: No. INTERPRETATION Stress EKG Conclusion: No evidence of stress induced EKG changes. Imaging Protocol IMAGE PROTOCOL: Rest Tc-99m/stress Tc-99m 1 day Rest: Stress: Viability: Radiopharm.Tc99m [id number] Sestamibi Jzba07tTm 33mCi Duration 15min. 15min. Img Date 11/10/2019 11/10/2019 Rest Admin Site:IV - Right AntecubitalAdministrator:JENNIFER Moses, ARRT (R)(N) Stress Admin Site: IV - Right AntecubitalAdministrator: RT Liliana (R)(N) STRESS DATA End Diast. Vol.153.0mlAv. Heart Rate69.0bpm End Syst. Vol.44.0mlCO Index BSA0.0L/min Myocardial Mvey662.0gEject. Tblvjjlc42.0% Stress Rates Pk. Fill Rate3.06EDV/secLVtime Pk. Fill 211.08msec Pk. Empty Rate4.36ESV/secLVtime Pk. Ixwmf828.08msec 1/3 Pk. Fill0.77EDV/sec Stress Scores Regional WT0.00Summed WT0.00 Regional WM0.00Summed WM0.00 The rest and stress images show normal perfusion, normal contraction and thickening. LV Perf. Quant 17 Seg. SSS0.00 17 Seg. SRS0.00 17 Seg. SDS0.00 Stress Defect Extent (% LAD)0.00Rest Defect Extent (% LAD)0.00Rev. Defect Extent (% LAD)0.00 Stress Defect Extent (% LCX) 0.00Rest Defect Extent (% LCX)0.00Rev. Defect Extent (% LCX)0.00 Stress Defect Extent (% RCA)0.00Rest Defect Extent (% RCA)0.00Rev. Defect Extent (% RCA)0.00 Stress Defect Extent (% LUISA)0.00Rest Defect Extent (% LUISA)0.00Rev. Defect Extent (% LUISA)0.00 Other Information Quality:Good Risk Assessment: Low Risk Conclusion 1. No evidence of EKG changes with stress testing. 2. Normal perfusion at stress/rest. 3. Low risk study. 4. EF > 60%. Signed by : Saida Wetzel, Electronically Approved : 11/10/2019 17:40:46
== END | disposition home or self-care (01) ==
LOC: NM 12:45
PROVIDERS: ATTEND Internal Medicine Cardiovascular Disease
DX: I10 Essential (primary) hypertension (principal); R07.9 Chest pain, unspecified
CPT/HCPCS: 78452; 93017; A9500; J2785

== ENCOUNTER → 2020-02-26 | Outpatient (CLI) | payer BC ==
[~2020-02-26] MED LIST changes: +AMLO-186 PO; -AMLO5TAB10 PO; -REGADENOSON 0.4 MG/5 ML DISP.SYRIN. IV ONE
--- NOTE | 2020-02-26 13:37 | RAD ---
PQRS Compliance Statement: One or more of the following individualized dose reduction techniques were utilized for this examinat ion: 1. Automated exposure control 2. Adjustment of the mA and/or kV according to patient size 3. Use of iterative reconstruction technique CT THORAX WO 02/26/2020 8:31 AM Indication: Lung nodule COMPARISON: CT chest 07/24/2019 TECHNIQUE: Multiple axial CT images of the chest were obtained without intravenous contrast. Coronal and sagittal reformats are provided. FINDINGS: There is a 5 mm solid noncalcified pulmonary nodule in the anterior right upper lobe (series 3, image 134), stable. There is a predominantly calcified granuloma the lateral right lower lobe measuring 13 mm additional scattered calcified granulomas are present. There is a 3 mm solid noncalcified pulmona ry nodule in the lingula, stable. Tree-in-bud nodular airspace disease identified in the lateral segm ent right middle lobe, similar to prior examination. Scattered micronodules are identified throughout the lungs with upper lung zone predominance. No pleural effusions, bibasilar congestion or pneumotho rax. Calcified mediastinal and right hilar lymph nodes identified. Heart size within normal limits. T horacic aorta is normal in course and caliber. Calcifications within the liver and spleen likely repr esent sequela prior granulomatous exposure. No suspicious osseous abnormality is identified. IMPRESSION: No new or enlarging solid noncalcified pulmonary nodules. There is a 5 mm solid noncalcified pulmonar y nodule in the right upper lobe. Confirmation with 2 year stability is recommended to ensure benign etiology. Centrilobular micronodules are identified throughout the lungs with upper lung predominance. Consider ation may be given for underlying sarcoidosis or silicosis. Prior granuloma is exposure may have trin[place] lar appearance. Respiratory bronchiolitis interstitial lung disease remains in the differential. Electronically signed by: Fariha Oliveira MD (02/26/2020 1:34 PM) [id number]
== END ==
LOC: CT 08:23
PROVIDERS: ATTEND Internal Medicine Pulmonary Disease
DX: R91.1 Solitary pulmonary nodule (principal)
CPT/HCPCS: 71250

== ENCOUNTER → 2020-09-11 | Outpatient (CLI) | payer BC ==
--- NOTE | 2020-09-11 12:21 | RAD ---
EXAM: CT CHEST WITHOUT CONTRAST HISTORY: Nodule COMPARISON: CT chest 02/26/2020 TECHNIQUE: Helical CT of the chest performed without contrast. Coronal and sagittal reformats were o btained. One or more of the following individualized dose reduction techniques were utilized for this examinat ion: 1. Automated exposure control 2. Adjustment of the mA and/or kV according to patient size 3. Use of iterative reconstruction technique. FINDINGS: Thyroid gland and thoracic inlet: Normal. Heart and great vessels: Heart is normal in size. No pericardial effusion. Ascending thoracic aorta i s at the upper limit of normal in caliber, unchanged. Mediastinum and genoveva: Calcified mediastinal and hilar lymph nodes are unchanged. Lungs and pleura: The 5 mm noncalcified nodule in the anterior right lower lobe along the minor fissu re is unchanged. A 5 mm bilobed pulmonary nodule or cluster 2 nodules in the right lower lobe and 3 m m pulmonary nodule in right lower lobe are unchanged. A 1.3 cm calcified granuloma in the lateral rig ht lower lobe with surrounding scarring is unchanged. There are a few other calcified granulomas. The re are unchanged scattered centrilobular and tree-in-bud nodules, greatest in the right upper lobe, l eft lower lobe, and lingula. No pleural effusion. Central airways are clear. Chest wall and axillae: No axillary lymphadenopathy. Upper abdomen: There are few calcified hepatic granulomas. Bones: No acute osseous abnormality. IMPRESSION: 1. Unchanged scattered noncalcified pulmonary nodules measuring up to 5 mm. These have been stable s jonathan at least 07/24/2019. 2. Sequela of granulomatous disease. 3. Unchanged bilateral centrilobular and tree-in-bud nodules. Electronically signed by: Ariela Diego MD (09/11/2020 12:18 PM) [id number]
== END ==
LOC: CT 09:44
PROVIDERS: ATTEND Internal Medicine Pulmonary Disease
DX: R91.8 Other nonspecific abnormal finding of lung field (principal); J84.10 Pulmonary fibrosis, unspecified; J98.4 Other disorders of lung
CPT/HCPCS: 71250